=== PATIENT | male | born 1930 | race Caucasian/White ===

== ENCOUNTER → 2017-02-12 | Outpatient (CLI) | payer MEDICARE, OTHER ==
[~2017-02-12] MED LIST: FENO160T; GLIM2TAB; LOSA1TAB15; REGADENOSON 0.4 MG/5 ML SYR (LEXISCAN) IV ONE
[2017-02-12] MEDS: CATHETER FLUSH 10 ML SYR IV PRN ×2 (11:49→13:23)
[2017-02-12 13:21] VITALS: BP 160/73
== END ==
LOC: CARD 11:36
PROVIDERS: ATTEND Physician Assistant
DX: I25.10 Atherosclerotic heart disease of native coronary artery without angina pectoris (principal); I65.23 Occlusion and stenosis of bilateral carotid arteries; E78.2 Mixed hyperlipidemia; I73.9 Peripheral vascular disease, unspecified
CPT/HCPCS: 78452; 93017

== ENCOUNTER 2017-02-19 07:33 | Day surgery (SDC) | payer MEDICARE, OTHER ==
[~2017-02-19] VITALS: Ht 175.3 cm; Wt 75.9 kg
[2017-02-19] VITALS (12 sets, daily range): BP systolic 123–171; BP diastolic 46–96
[~2017-02-19 07:33] MED LIST changes: -REGADENOSON 0.4 MG/5 ML SYR (LEXISCAN) IV ONE
[2017-02-19] MEDS ORDERED: HEParin (CATH LAB) 2,000 ML IV ONE (07:35)
[2017-02-19] MEDS ORDERED: NS IV 1000 ML 1,000 ML ONE ×3 (07:35→11:20)
[2017-02-19] MEDS ORDERED: NS IV 1000 ML 1,000 ML IV SCH (07:46)
[2017-02-19 08:13] LABS: MEAN PLATELET VOLUME 10.1 FL (7.4-10.4); RED BLOOD COUNT 4.22 10^6/uL (4.35-5.85); RED CELL DISTRIBUTION WIDTH 14.4 % (10.0-14.5); WHITE BLOOD COUNT 6.8 10^3/uL (4.3-11.0)
[2017-02-19 08:14] LABS: BILIRUBIN,URINE NEGATIVE (NEGATIVE); KETONES,URINE NEGATIVE (NEGATIVE); LEUKOCYTE ESTERASE ,URINE NEGATIVE (NEGATIVE); NITRITE,URINE NEGATIVE (NEGATIVE); PH,URINE 6 (5-9); PROTEIN,URINE 1+ (NEGATIVE); UROBILINOGEN,URINE NORMAL (NORMAL)
--- NOTE | 2017-02-19 08:22 | Diagnostic Imaging Report ---
Portable erect AP chest at 809 hours. INDICATION: Preop heart catheter. FINDINGS: The borderline cardiomegaly noted on the prior exam of 09/12/09 is again evident and no different. The lungs remain clear. There is no sign of failure, pneumonia or pleural effusion. The mediastinum is not widened. The osseous structures are intact. IMPRESSION: There is borderline cardiomegaly, but there is no evidence for an acute abnormality. Dictated by: Dictated on workstation # [id number]
[2017-02-19 08:23] LABS: WBC,URINE RARE /HPF
[2017-02-19 08:24] LABS: HYALINE CASTS, URINE RARE /LPF; SQUAMOUS EPITHELIAL CELL,UR RARE /HPF
[2017-02-19] MEDS: NS IV 1000 ML 1,000 ML IV SCH ×4 (08:27→21:45)
[2017-02-19 08:30] LABS: INR 0.9 (0.8-1.4); PROTHROMBIN TIME PATIENT 12.4 SEC (12.2-14.7)
[2017-02-19 08:34] LABS: ALBUMIN 4.2 GM/DL (3.2-4.5); BILIRUBIN,TOTAL 0.5 MG/DL (0.1-1.0); CALCIUM 9.5 MG/DL (8.5-10.1); CREATININE SERUM 1.58 MG/DL (0.60-1.30); POTASSIUM 4.7 MMOL/L (3.6-5.0); TOTAL PROTEIN 7.4 GM/DL (6.4-8.2)
[2017-02-19] MEDS ORDERED: CLOP75TA28 PO (08:46)
[2017-02-19] MEDS ORDERED: SITA50TA PO (08:47)
[2017-02-19] MEDS ORDERED: SIMV20TA3 PO (08:47)
[2017-02-19] MEDS ORDERED: METO-387 PO (08:49)
[2017-02-19] MEDS ORDERED: LOSA1TAB23 PO (08:50)
[2017-02-19] MEDS ORDERED: RANI150T90 PO (08:51)
[2017-02-19] MEDS ORDERED: FENO145T20 PO (08:51)
[2017-02-19] MEDS ORDERED: fentaNYL INJECTION 100 MCG/2 ML AMP ONE ×2 (09:34→18:11)
[2017-02-19] MEDS ORDERED: MIDAZOLAM 5 MG/5 ML (VERSED) VIAL ONE (09:34)
[2017-02-19] MEDS ORDERED: HEParin 1000 UNIT/ML (10ML VIAL) FOR BOLUS ONE (10:12)
[2017-02-19] MEDS ORDERED: NITROGLYCERIN DRIP 25 MG/D5W 250 ML IV ONE (10:19)
[2017-02-19] MEDS ORDERED: CLOPIDOGREL 300 MG (PLAVIX) TABLET PO ONE (11:51)
[2017-02-19] MEDS ORDERED: ASPIRIN 325 MG (5 GR) TABLET ONE (11:51)
[2017-02-19] MEDS ORDERED: PATIENT MAY USE OWN MEDS, ALL PO SCH (12:00)
--- NOTE | 2017-02-19 12:00 | Cardiac Procedure Note-CS/ASA ---
Pre-Procedure Note Pre-Op Procedure Note H&P Reviewed The H&P was reviewed, patient examined and no changes noted. Date H&P Reviewed: Feb 19, 2017 Time H&P Reviewed: 09:30 Conscious Sedation Pre-Proced Time Reviewed: 09:30 ASA Class: 3 Airway Mallampati Classification: (prairie band appropriate class) I. II. III, IV Lungs Heart ASA score ASA 1: a normal healthy patient ASA 2: a patient with a mild systemic disease (mid diabetes, controlled hypertension, obesity x ASA 3: a patient with a severe systemic disease that limits activity (angina , COPD, prior Myocardial infarction) ASA 4: a patient with an incapacitating disease that is a constant threat to life (CHF, renal failure) ASA 5: a moribund patient not expected to survive 24 hrs. (ruptured aneurysm) ASA 6: a declared brain patient whose organs are being harvested. For emergent operations, add the letter E after the classification Grade 3 Sedation Plan: Analgesia, Amnesia, Plan communicated to team members, Discussed options with patient/fam, Discussed risks with patient/fam Note The patient is an appropriate candidate to undergo the planned procedure, sedation, and anesthesia. The patient immediately re-assessed prior to indication. JULIETTE MAHAN MD Feb 19, 2017 12:00
--- NOTE | 2017-02-19 13:55 | Cardiac Cath Report ---
Cardiac Cath Report Physician (s)/Patternmaker All Around (s) Physician JULIETTE MAHAN MD Pre-Procedure Diagnosis Pre-Procedure Diagnosis: Peripheral arterial disease Post-Procedure Note Procedure Start Date: Feb 19, 2017 Procedure Start Time: 10:30 Name of Procedure: peripheral angiogram, abdominal aortogram, bilateral lower extremity runoff. Rotion atherectomy, balloon then stent deployment to the right SFA Findings/Procedure Note Procedure report After explaining the procedure to the patient all pros and cons were explained patient was placed on the cardiac catheterization laboratory left groin was prepped SL fashion 6 Dominican sheath was placed in the left femoral artery. Pigtail catheter advanced the abdominal aorta abdominal aortogram was done. Long stork wire was advanced to the right common iliac artery, pigtail catheter was exchanged into a straight catheter, runoff of the right lower except he was done. Patient was given a total of 7000 units of heparin, I advanced a stork wire against through the straight catheter was unable to intubate the SFA that was totally occluded midportion. Exchanged a stork wire into command wire advanced to the SFA, I was unable to cross the lesion. Advanced mini catheter then I was able to cross it and advanced mini catheter to the popliteal artery, the wire was removed and manual injection in the popliteal artery was done which showed good catheter position with good flow. Then I placed a Viber wire then Nav6 protection device then I used diamondback with multiple atherectomy attempt to the SFA then I advanced [id number] 6.0200 mm inflated multiple time in the SFA. Reevaluation showed distal stenosis after the total occlusion with establishment of flow and dissection. I placed another balloon 6.0100 mm inflated twice with good results then I placed 2 overlapping Supera stent 5.5 150 and 6.0 x 100 postdilated with the 6.0 balloon with excellent results, runoff showed good flow down to the trifurcation, there is occlusion of the anterior and posterior tibial artery with brisk flow through the peroneal artery. The long sheath was pulled back and exchanged into short sheath and runoff of the left lower except he was made at the end of the procedure sheath was sutured in place. Anatomy Abdominal aortogram: Atherosclerotic disease in the abdominal aorta and bifurcation no dissection or aneurysm was noted mild arthroscopic disease. Left lower extremity column runoff was done through the sheath, there is moderate severe stenosis in the SFA, total occlusion at the trifurcation with small vessel beyond the trifurcation noted. Next Right lower extremity: Patient had total occlusion at the distal right SFA, complex intervention with atherectomy using diamondback then balloon angioplasty then deployment of 2 overlapping stents Supera 5.5 time 150 and 6.0 100 with excellent results, below the knee there is only 1 vessel runoff which is the peroneal artery, brisk flow filling the arch at the foot. I will continue monitoring and evaluate for further workup and intervention if needed Conclusion 1. Total occlusion of the right SFA, successful complex intervention with atherectomy then deployment of 2 overlapping stent Supera 5.5150 and 6.0100 with excellent results, occlusion of the anterior and posterior tibial artery, the only vessel runoff is the peroneal artery that is filling the arch. I'll continue monitoring the ulcer on the foot, if no improvement CONSIDER FURTHER INTERVENTION TO THE SMALL VESSEL BELOW THE KNEE. 2. moderate to severe disease of the right SFA, occlusion at the trifurcation, did not see any vessel below the trifurcation. 3. Atherosclerotic disease in the abdominal aorta and bifurcation, no dissection or aneurysm Recommendations I'll continue maximizing medical therapy, reevaluate CALE and monitor the ulcer on the right leg, if no improvement consider intervention on the below knee vessels Anesthesia Type: Conscious Sedation Estimated blood loss (mL): 25 ml Contrast Amount: 59 ml Total Radiation Dose: 294 mGy Post-Procedure Diagnosis Post-operative diagnosis: Peripheral arterial disease Nonhealing foot ulcer Coronary artery disease Hypertension Diabetes mellitus JULIETTE MAHAN MD Feb 19, 2017 13:55
[2017-02-19] MEDS ORDERED: ATROPINE INJECTION 1 MG/10 ML SYR (ABBOTT) ONE (18:12)
[2017-02-19] MEDS ORDERED: SIMvastatin 20 MG (ZOCOR) TAB PO SCH (21:00)
[2017-02-19] MEDS ORDERED: raNItidine (ZANTAC) 150 MG TAB NON-FORMULARY PO SCH (21:00)
[2017-02-19] MEDS ORDERED: TRICOR 145 MG PO SCH (21:00)
[2017-02-20] VITALS (11 sets, daily range): BP systolic 113–158; BP diastolic 44–68
[2017-02-20 04:47] LABS: MEAN PLATELET VOLUME 10.2 FL (7.4-10.4); RED BLOOD COUNT 3.61 10^6/uL (4.35-5.85); RED CELL DISTRIBUTION WIDTH 14.3 % (10.0-14.5); WHITE BLOOD COUNT 6.9 10^3/uL (4.3-11.0)
[2017-02-20 05:13] LABS: ANION GAP 9 MMOL/L (5-14); BLOOD UREA NITROGEN 21 MG/DL (7-18); BUN/CREATININE RATIO 19; CALCIUM 8.5 MG/DL (8.5-10.1); CARBON DIOXIDE 21 MMOL/L (21-32); CHLORIDE 111 MMOL/L (98-107); CREATININE SERUM 1.11 MG/DL (0.60-1.30); GFR ESTIMATED > 60; GLUCOSE 139 MG/DL (70-105); POTASSIUM 4.4 MMOL/L (3.6-5.0); SODIUM 141 MMOL/L (135-145)
--- NOTE | 2017-02-20 08:04 | Short Stay Summary ---
History of Present Illness History of Present Illness Reason for visit/HPI 86 years old gentleman with history of coronary artery disease extensive peripheral artery disease claudication, pain at rest, scheduled for percutaneous angiogram and intervention, underwent the procedure yesterday, this morning his been feeling well. Expressed that for the first time his ankle has felt better, did not have pain last night. Groin is healing well. Date of Admission February 19, 2017 Date of Discharge February 20, 2017 Time Seen by Provider: 07:50 Attending Physician Juliette Cruz MD Admitting Physician Cade Boyle MD Consult Allergies and Home Medications Allergies Coded Allergies: No Known Drug Allergies (Verified Allergy, Unknown, 09/13/09) Home Medications Clopidogrel Bisulfate 75 Mg Tablet, 75 MG PO DAILY, (Reported) Fenofibrate Nanocrystallized 145 Mg Tablet, 145 MG PO DAILY, (Reported) Losartan/Hydrochlorothiazide 1 Each Tablet, 1 EACH PO DAILY, (Reported) Metoprolol Succinate 25 Mg Tab.er.24h, 25 MG PO DAILY, (Reported) Ranitidine HCl 150 Mg Tablet, 150 MG PO BID, (Reported) Simvastatin 20 Mg Tablet, 20 MG PO HS, (Reported) Sitagliptin Phosphate 50 Mg Tablet, 50 MG PO DAILY, (Reported) Past [id number] Hx Patient Social History Marrital Status: Employed/Student: retired Smoking Status: Former Smoker Former Smoker, Quit: Feb 20, 1984 Recent Foreign Travel: No Contact w/other who traveled: No Recent Infectious Disease Expo: No Immunizations Up To Date Date of Pneumonia Vaccine: Feb 19, 2006 Reproductive System Hx Reproductive Disorders: No Gastrointestinal Gastroesophageal Reflux Constitutional: no symptoms reported, see HPI EENTM: see HPI, no symptoms reported Respiratory: no symptoms reported, see HPI Cardiovascular: no symptoms reported, see HPI Gastrointestinal: no symptoms reported, see HPI Genitourinary: see HPI Musculoskeletal: no symptoms reported, see HPI Skin: see HPI Psychiatric/Neurological: No Symptoms Reported, See HPI Physical Exam Vital Signs Vital Sign - Last 12Hours 02/19/17 08:03 Temp 97.4 Pulse 53 Resp 18 B/P (MAP) 171/73 Pulse Ox 97 Capillary Refill : Less Than 3 Seconds General Appearance: No Apparent Distress, WD/WN Eyes: Bilateral Eye Normal Inspection, Bilateral Eye PERRL, Bilateral Eye EOMI HEENT: PERRL/EOMI, TMs Normal, Normal ENT Inspection, Pharynx Normal Neck: Full Range of Motion, Normal Inspection, Non Tender, Supple, Carotid Bruit Respiratory: Chest Non Tender, Lungs Clear, Normal Breath Sounds, No Accessory Muscle Use, No Respiratory Distress Cardiovascular: Regular Rate, Rhythm, No Edema, No Gallop, No JVD, Systolic Murmur, Other (diminished peripheral pulse, legs are warm.) Gastrointestinal: Normal Bowel Sounds, No Organomegaly, No Pulsatile Mass, Non Tender, Soft Back: Normal Inspection, No CVA Tenderness, No Vertebral Tenderness Extremity: Normal Inspection, Normal Range of Motion, Non Tender, No Calf Tenderness, No Pedal Edema, Slow Capillary Refill Neurologic/Psychiatric: Alert, Oriented x3, No Motor/Sensory Deficits, Normal Mood/Affect Skin: Normal Color, Warm/Dry Lymphatic: No Adenopathy Short Stay Diagnosis Discharge Diagnosis-Short Stay Admission Diagnosis: peripheral arterial disease Claudication Coronary artery disease Hypertension Hyperlipidemia Final Discharge Diagnosis: peripheral arterial disease Claudication Coronary artery disease Hypertension Hyperlipidemia Conclusion Labs Laboratory Tests 02/19/17 08:05: White Blood Count 6.8, Red Blood Count 4.22L, Hemoglobin 13.0L, Hematocrit 41, Mean Corpuscular Volume 96, Mean Corpuscular Hemoglobin 31, Mean Corpuscular Hemoglobin Concent 32, Red Cell Distribution Width 14.4, Platelet Count 159, Mean Platelet Volume 10.1, Prothrombin Time 12.4, INR Comment 0.9, Activated Partial Thromboplast Time 25, Sodium Level 139, Potassium Level 4.7, Chloride Level 106, Carbon Dioxide Level 27, Anion Gap 6, Blood Urea Nitrogen 30H, Creatinine 1.58H, Estimat Glomerular Filtration Rate 42, BUN/Creatinine Ratio 19 , Glucose Level 194H, Calcium Level 9.5, Total Bilirubin 0.5, Aspartate Amino Transf (AST/SGOT) 17, Alanine Aminotransferase (ALT/SGPT) 21, Alkaline Phosphatase 53, Total Protein 7.4, Albumin 4.2, Triglycerides Level 135, Cholesterol Level 160, LDL Cholesterol Direct 89, VLDL Cholesterol 27, HDL Cholesterol 55 02/19/17 14:50: Activated Partial Thromboplast Time 72H 02/19/17 16:20: Activated Partial Thromboplast Time 40H 02/20/17 04:12: White Blood Count 6.9, Red Blood Count 3.61L, Hemoglobin 11.2L, Hematocrit 35L, Mean Corpuscular Volume 97, Mean Corpuscular Hemoglobin 31, Mean Corpuscular Hemoglobin Concent 32, Red Cell Distribution Width 14.3, Platelet Count 123L, Mean Platelet Volume 10.2, Sodium Level 141, Potassium Level 4.4, Chloride Level 111H, Carbon Dioxide Level 21, Anion Gap 9, Blood Urea Nitrogen 21H, Creatinine 1.11, Estimat Glomerular Filtration Rate > 60, BUN/Creatinine Ratio 19, Glucose Level 139H, Calcium Level 8.5 Conclusion/Plan peripheral arterial disease, severe stenosis at both lower extremity, on the right leg underwent atherectomy and 2 stents to the right SFA Supera 5.5 x 150 and 6.0100 with good results, brisk flow, single-vessel below the knee with popliteal artery filling the arch, the anterior and posterior tibial are occluded, I will monitor and reevaluate CALE. on the left leg patient has multiple segment of moderate to severe stenosis at the left SFA, did not see any visible below the knee. I will monitor. Planning to evaluate CALE. Hypertension, continue to monitor blood pressure Hyperlipidemia, monitor lipids Follow-up in my office next week JULIETTE CRUZ MD Feb 20, 2017 08:04
[2017-02-20] MEDS ORDERED: ASPI-983 PO (08:05)
--- NOTE | 2017-02-20 08:08 | Discharge Inst-Post CATH ---
Discharge Inst-CATH Post Cardiac Cath D/C Inst Follow Up/Plan Appointment with Dr. Cruz's office next Friday CARDIAC CATH DISCHARGE INSTRUCTIONS *Hold Metformin for 48 hours post heart cath. ACTIVITY * Go Home directly and rest. * Limit activity of the leg (or wrist if it was used) for 7 days including aerobics, swimming, jogging, bicycling, etc. * Restrict stair-climbing for 7 days if possible, if not, climb up with your non -cath leg, then bring together on the same step. * Avoid lifting, pushing, pulling or excessive movement of the affected extremity for 7 days. * Customary sexual activity may be resumed after 2 days-use caution not to use a position that strains or causes pain to the affected extremity. * No driving for 24 hours. * NO SMOKING. * Avoid straining for bowel movements for 7 days. * Gentle walking on level ground is allowed. * Returning to work will depend on the type of procedure and the results. Your doctor will discuss this with you. CALL YOUR DOCTOR FOR ANY OF THE FOLLOWING: *If bleeding from the puncture site occurs- Apply gentle pressure to site with clean cloth and call your doctor or EMS. * If a knot or lump forms under the skin, increases in size, or causes pain. * If bruising appears to be worsening or moving further down your leg instead of disappearing. * Temperature above 101 F. CARE OF YOUR GROIN INCISION; * Bruising or purple discoloration of the skin near the puncture site is common. * You may shower only, no bathtub bathing for 5 days. Be careful to avoid slipping as your leg may feel stiff. * If a closure device was used on your femoral artery, please see the attached guide regarding care of the device and your leg. * REMOVE the dressing from your groin the next day after your procedure in the shower. CARE OF YOUR WRIST INCISION; * Bruising or purple discoloration of the skin near the puncture site is common. * You may shower. * DO NOT submerge wrist. * Remove dressing in 24 hours. JULIETTE CRUZ MD Feb 20, 2017 08:08
[2017-02-20] MEDS ORDERED: CLOPIDOGREL 75 MG (PLAVIX) TABLET PO SCH (09:00)
[2017-02-20] MEDS ORDERED: sitaGLIPtin 50 MG (NON-FORMULARY) TAB PO SCH (09:00)
[2017-02-20] MEDS ORDERED: ASPIRIN E.C. 81 MG (ECOTRIN) TAB PO SCH (09:00)
[2017-02-20] MEDS ORDERED: LOSARTAN HCTZ PO SCH (09:00)
[2017-02-20] MEDS ORDERED: fentaNYL INJECTION 100 MCG/2 ML AMP IVP PRN (10:45)
== END 2017-02-20 09:08 | disposition home or self-care (01) ==
LOC: CATH 07:33 → ICU 14:19 → CATH 02-20 09:08
PROVIDERS: ATTEND Internal Medicine Cardiovascular Disease
DX: I70.203 Unspecified atherosclerosis of native arteries of extremities, bilateral legs (principal); L97.519 Non-pressure chronic ulcer of other part of right foot with unspecified severity; E11.621 Type 2 diabetes mellitus with foot ulcer; I10 Essential (primary) hypertension; E78.5 Hyperlipidemia, unspecified; I25.10 Atherosclerotic heart disease of native coronary artery without angina pectoris; Z95.5 Presence of coronary angioplasty implant and graft; Z79.84 Long term (current) use of oral hypoglycemic drugs; Z79.899 Other long term (current) drug therapy; Z87.891 Personal history of nicotine dependence
CPT/HCPCS: 36247; 36415; 37227; 71010; 75625; 75716; 75774; 80048; 80053; 80061; 81000; 85027; 85347; 85610; 85730; 87081; 93005

== ENCOUNTER 2018-03-07 18:23 | Inpatient (IN) | payer MEDICARE, OTHER ==
[~2018-03-07] VITALS: Ht 175.3 cm; Wt 69.6 kg
[~2018-03-07 18:23] MED LIST changes: +ASPI-983 PO; +CLOP75TA28 PO; +FENO145T37 PO; +LOSA1TAB23 PO; +METO-387 PO; +RANI150T90 PO; +SIMV20TA3 PO; +SITA50TA PO
--- OUTSIDE RECORDS SUMMARY | 2018-03-07 18:40 | XMS REPORT | Continuity of Care Document ---
Author Author [facility] Organization [facility] Address Unknown Phone Unavailable Allergies Active Description Code Type Severity Reaction Onset Reported/Identified Relationship to Patient Clinical Status Yes No Known Drug Allergies [id number] Drug Allergy Unknown N/A 09/13/2009 Medications There is no data. Problems Date Dx Coded Attending Type Code Diagnosis Diagnosed By 08/14/2014 Ot 414.01 08/14/2014 Ot 250.00 08/14/2014 Ot 272.4 08/14/2014 Ot 401.9 08/14/2014 Ot 414.01 08/14/2014 Ot 429.3 08/14/2014 Ot 794.39 08/14/2014 Ot V45.81 08/14/2014 Ot V72.63 08/14/2014 Ot V72.81 08/14/2014 Ot V74.8 08/14/2014 Ot 397.0 08/14/2014 Ot 401.9 08/14/2014 Ot 414.00 08/14/2014 Ot 424.0 08/14/2014 JOSE G MIGUEL Ot 250.00 08/14/2014 JOSE G MIGUEL Ot 272.4 08/14/2014 JOSE G MIGUEL Ot 397.0 08/14/2014 JOSE G MIGUEL Ot 401.9 08/14/2014 JOSE G MIGUEL Ot 414.00 08/14/2014 JOSE G MIGUEL Ot 416.8 08/14/2014 JOSE G MIGUEL Ot 424.0 08/14/2014 JOSE G MIGUEL Ot 433.10 09/28/2014 NEGRITO FLANAGAN, JULIETTE Stein Ot 272.4 09/28/2014 NEGRITO FLANAGAN, JULIETTE Stein Ot 401.9 09/28/2014 NEGRITO FLANAGAN, JULIETTE Stein Ot 414.00 09/28/2014 JULIETTE MAHAN MD Ot 433.10 10/31/2014 NEGRITO FLANAGAN, JULIETTE Stein Ot 272.4 10/31/2014 NEGRITO FLANAGAN, JULIETTE Stein Ot 401.9 10/31/2014 NEGRITO FLANAGAN, JULIETTE Stein Ot 414.00 10/31/2014 NEGRITO FLANAGAN, JULIETTE Stein Ot 433.10 11/18/2014 NEGRITO FLANAGAN, JULIETTE Steni Ot 272.4 11/18/2014 NEGRITO FLANAGAN, JULIETTE Stein Ot 401.9 11/18/2014 NEGRITO FLANAGAN, JULIETTE Stein Ot 414.00 11/18/2014 NEGRITO FLANAGAN, JULIETTE Stein Ot 433.10 11/29/2014 NEGRITO FLANAGAN, JULIETTE Stein Ot 272.4 11/29/2014 NEGRITO FLANAGAN, JULIETTE Stein Ot 401.9 11/29/2014 NEGRITO FLANAGAN, JULIETTE Stein Ot 414.00 11/29/2014 NEGRITO FLANAGAN, JULIETTE Stein Ot 433.10 12/09/2014 GIOVANNI DPM, SEFERNIO Q Ot 785.9 12/14/2014 GIOVANNI DPM, SEFERINO Q Ot 785.9 02/27/2015 Ot 250.00 02/27/2015 Ot 272.4 02/27/2015 Ot 401.9 02/27/2015 Ot 414.01 02/27/2015 Ot 429.3 02/27/2015 Ot 794.39 02/27/2015 Ot V45.81 02/27/2015 Ot V72.63 02/27/2015 Ot V72.81 02/27/2015 Ot V74.8 02/27/2015 Ot 397.0 02/27/2015 Ot 401.9 02/27/2015 Ot 414.00 02/27/2015 Ot 424.0 02/27/2015 DAYAN PA, JOSE G Mederos Ot 250.00 02/27/2015 DAYAN PA, JOSE G Mederos Ot 272.4 02/27/2015 DAYAN PA, JOSE G Mederos Ot 397.0 02/27/2015 DAYAN PA, JOSE G Mederos Ot 401.9 02/27/2015 DAYAN PA, JOSE G Mederos Ot 414.00 02/27/2015 DAYAN PA, JOSE G Mederos Ot 416.8 02/27/2015 DAYAN PA, JOSE G Mederos Ot 424.0 02/27/2015 DAYAN PA, JOSE G K Ot 433.10 02/27/2015 NEGRITO FLANAGAN, JULIETTE J Ot 272.4 02/27/2015 NEGRITO FLANAGAN, JULIETTE J Ot 401.9 02/27/2015 NEGRITO FLANAGAN, JULIETTE J Ot 414.00 02/27/2015 NEGRITO FLANAGAN, JULIETTE J Ot 433.10 02/27/2015 NEGRITO FLANAGAN, JULIETTE Stein Ot 272.4 02/27/2015 NEGRITO FLANAGAN, JULIETTE J Ot 401.9 02/27/2015 NEGRITO FLANAGAN, JULIETTE Stein Ot 414.00 02/27/2015 NEGRITO FLANAGAN, JULIETTE Stein Ot 433.10 02/27/2015 GIOVANNI DPM, SEFERINO Q Ot 785.9 06/01/2015 Ot 397.0 06/01/2015 Ot 401.9 06/01/2015 Ot 414.00 06/01/2015 Ot 424.0 06/01/2015 DAYAN PA, JOSE G K Ot 250.00 06/01/2015 DAYAN PA, JOSE G K Ot 272.4 06/01/2015 DAYAN PA, JOSE G K Ot 397.0 06/01/2015 MAMADOU-LENNY PA, JOSE G K Ot 401.9 06/01/2015 MAMADOU-LENNY PA, JOSE G K Ot 414.00 06/01/2015 DAYAN PA, JOSE G K Ot 416.8 06/01/2015 MAMADOU-LENNY PA, JOSE G K Ot 424.0 06/01/2015 DAYAN PA, JOSE G K Ot 433.10 06/01/2015 NEGRITO FLANAGAN, JULIETTE Stein Ot 272.4 06/01/2015 NEGRITO FLANAGAN, JULIETTE J Ot 401.9 06/01/2015 NEGRITO FLANAGAN, JULIETTE J Ot 414.00 06/01/2015 NEGRITO FLANAGAN, JULIETTE J Ot 433.10 06/01/2015 NEGRITO FLANAGAN, JULIETTE J Ot 272.4 06/01/2015 NEGRITO FLANAGAN, JULIETTE J Ot 401.9 06/01/2015 NEGRITO FLANAGAN, JULIETTE J Ot 414.00 06/01/2015 NEGRITO FLANAGAN, JULIETTE J Ot 433.10 06/01/2015 GIOVANNI DPM, SEFERINO Q Ot 785.9 06/05/2015 YESY FLANAGAN, NICOLE Berumen Ot I10 06/05/2015 YESY FLANAGAN, NICOLE Berumen Ot N19 06/11/2015 Ot 397.0 06/11/2015 Ot 401.9 06/11/2015 Ot 414.00 06/11/2015 Ot 424.0 06/11/2015 CEDILLO-LENNY PA, JOSE G K Ot 250.00 06/11/2015 CEDILLO-LENNY PA, JOSE G K Ot 272.4 06/11/2015 CEDILLO-LENNY PA, JOSE G K Ot 397.0 06/11/2015 CEDILLO-LENNY PA, JOSE G K Ot 401.9 06/11/2015 CEDILLO-LENNY PA, JOSE G K Ot 414.00 06/11/2015 CEDILLO-LENNY PA, JOSE G K Ot 416.8 06/11/2015 CEDILLO-LENNY PA, JOSE G K Ot 424.0 06/11/2015 CEDILLO-LENNY PA, JOSE G K Ot 433.10 06/11/2015 NEGRITO FLANAGAN, JULIETTE Stein Ot 272.4 06/11/2015 NEGRITO FLANAGAN, JULIETTE J Ot 401.9 06/11/2015 NEGRITO FLANAGAN, BASHAR J Ot 414.00 06/11/2015 NEGRITO FLANAGAN, BASHAR J Ot 433.10 06/11/2015 NEGRITO FLANAGAN, JULIETTE J Ot 272.4 06/11/2015 NEGRITO FLANAGAN, JULIETTE J Ot 401.9 06/11/2015 NEGRITO FLANAGAN, BASHAR J Ot 414.00 06/11/2015 NEGRITO FLANAGAN, BASHAR J Ot 433.10 06/11/2015 GIOVANNI DPM, SEFERINO Q Ot 785.9 06/11/2015 NICOLE HAYWARD MD Ot I10 06/11/2015 NICOLE HAYWARD MD Ot N19 06/21/2015 Ot 397.0 06/21/2015 Ot 401.9 06/21/2015 Ot 414.00 06/21/2015 Ot 424.0 06/21/2015 MAMADOU-LENNY PA, JOSE G K Ot 250.00 06/21/2015 CEDILLO-LENNY PA, JOSE G K Ot 272.4 06/21/2015 CEDILLO-LENNY PA, JOSE G K Ot 397.0 06/21/2015 CEDILLO-LENNY PA, JOSE G K Ot 401.9 06/21/2015 CEDILLO-LENNY PA, JOSE G K Ot 414.00 06/21/2015 JOSE G MIGUEL Ot 416.8 06/21/2015 JOSE G MIGUEL Ot 424.0 06/21/2015 JOSE G MIGUEL Ot 433.10 06/21/2015 NEGRITO FLANAGAN, JULIETTE Stein Ot 272.4 06/21/2015 NEGRITO FLANAGAN, JULIETTE Stein Ot 401.9 06/21/2015 NEGRITO FLANAGAN, JULIETTE Stein Ot 414.00 06/21/2015 NEGRITO FLANAGAN, JULIETTE Stein Ot 433.10 06/21/2015 NEGRITO FLANAGAN, JULIETTE Stein Ot 272.4 06/21/2015 NEGRITO FLANAGAN, JULIETTE Stein Ot 401.9 06/21/2015 NEGRITO FLANAGAN, JULIETTE Stein Ot 414.00 06/21/2015 NEGRITO FLANAGAN, JULIETTE Stein Ot 433.10 06/21/2015 GIOVANNI DPM, SEFERINO Q Ot 785.9 06/21/2015 YESY LFANAGAN, NICOLE Berumen Ot I10 06/21/2015 YESY FLANAGAN, NICOLE Berumen Ot N19 07/12/2015 YESY FLANAGAN, NICOLE Berumen Ot I10 07/12/2015 YESY FLANAGAN, NICOLE Berumen Ot N19 04/02/2016 Ot 397.0 TRICUSPID VALVE DISEASE 04/02/2016 Ot 401.9 HYPERTENSION NOS 04/02/2016 Ot 414.00 CORON ATHEROSCLER NOS TYPE VESSEL, NATIV 04/02/2016 Ot 424.0 MITRAL VALVE DISORDER 04/02/2016 JOSE G MIGUEL Ot 250.00 DIAB HAMZAH WO COMPL, TYPE II OR UNSPEC TY 04/02/2016 JOSE G MIGUEL Ot 272.4 HYPERLIPIDEMIA NEC/NOS 04/02/2016 JOSE G MIGUEL Ot 397.0 TRICUSPID VALVE DISEASE 04/02/2016 JOSE G MIUGEL Ot 401.9 HYPERTENSION NOS 04/02/2016 JOSE G MIGUEL Ot 414.00 CORON ATHEROSCLER NOS TYPE VESSEL, NATIV 04/02/2016 JOSE G MIGUEL Ot 416.8 CHR PULMON HEART DIS NEC 04/02/2016 JOSE G MIGUEL Ot 424.0 MITRAL VALVE DISORDER 04/02/2016 JOSE G MIGUEL Ot 433.10 CAROTID ARTERY OCCLUSION W O CEREBRAL IN 04/02/2016 JULIETTE MAHAN MD Ot 272.4 HYPERLIPIDEMIA NEC/NOS 04/02/2016 JULIETTE MAHAN MD Ot 401.9 HYPERTENSION NOS 04/02/2016 JULIETTE MAHAN MD Ot 414.00 CORON ATHEROSCLER NOS TYPE VESSEL, NATIV 04/02/2016 JULIETTE MAHAN MD Ot 433.10 CAROTID ARTERY OCCLUSION W O CEREBRAL IN 04/02/2016 JULIETTE MAHAN MD Ot 272.4 HYPERLIPIDEMIA NEC/NOS 04/02/2016 JULIETTE MAHAN MD Ot 401.9 HYPERTENSION NOS 04/02/2016 JULIETTE MAHAN MD Ot 414.00 CORON ATHEROSCLER NOS TYPE VESSEL, NATIV 04/02/2016 JULIETTE MAHAN MD Ot 433.10 CAROTID ARTERY OCCLUSION W O CEREBRAL IN 04/02/2016 GIOVANNI DPM, SEFERINO Q Ot 785.9 CARDIOVAS SYS SYMP NEC 04/02/2016 NICOLE HAYWARD MD Ot I10 ESSENTIAL (PRIMARY) HYPERTENSION 04/02/2016 NICOLE HAYWARD MD Ot N19 UNSPECIFIED KIDNEY FAILURE 06/26/2016 Ot 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 TRICUSPID VALVE DISEASE 06/26/2016 Ot 401.9 HYPERTENSION NOS 06/26/2016 Ot 414.00 CORON ATHEROSCLER NOS TYPE VESSEL, NATIV 06/26/2016 Ot 424.0 MITRAL VALVE DISORDER 06/26/2016 JOSE G MIGUEL Ot 250.00 DIAB HAMZAH WO COMPL, TYPE II OR UNSPEC TY 06/26/2016 JOSE G MIGUEL Ot 272.4 HYPERLIPIDEMIA NEC/NOS 06/26/2016 JOSE G MIGUEL Ot 397.0 TRICUSPID VALVE DISEASE 06/26/2016 JOSE G MIGUEL Ot 401.9 HYPERTENSION NOS 06/26/2016 JOSE G MIGUEL Ot 414.00 CORON ATHEROSCLER NOS TYPE VESSEL, NATIV 06/26/2016 JOSE G MIGUEL Ot 416.8 CHR PULMON HEART DIS NEC 06/26/2016 JOSE G MIGUEL Ot 424.0 MITRAL VALVE DISORDER 06/26/2016 JOSE G MIGUEL Ot 433.10 CAROTID ARTERY OCCLUSION W O CEREBRAL IN 06/26/2016 JULIETTE MAHAN MD Ot 272.4 HYPERLIPIDEMIA NEC/NOS 06/26/2016 JULIETTE MAHAN MD Ot 401.9 HYPERTENSION NOS 06/26/2016 JULIETTE MAHAN MD Ot 414.00 CORON ATHEROSCLER NOS TYPE VESSEL, NATIV 06/26/2016 JULIETTE MAHAN MD Ot 433.10 CAROTID ARTERY OCCLUSION W O CEREBRAL IN 06/26/2016 JULIETTE MAHAN MD Ot 272.4 HYPERLIPIDEMIA NEC/NOS 06/26/2016 JULIETTE MAHAN MD Ot 401.9 HYPERTENSION NOS 06/26/2016 JULIETTE MAHAN MD Ot 414.00 CORON ATHEROSCLER NOS TYPE VESSEL, NATIV 06/26/2016 JULIETTE MAHAN MD Ot 433.10 CAROTID ARTERY OCCLUSION W O CEREBRAL IN 06/26/2016 GIOVANNI DPM, SEFERINO Q Ot 785.9 CARDIOVAS SYS SYMP NEC 06/26/2016 YESY FLANAGAN, NICOLE Berumen Ot I10 ESSENTIAL (PRIMARY) HYPERTENSION 06/26/2016 YESY FLANAGAN, NICOLE Berumen Ot N19 UNSPECIFIED KIDNEY FAILURE 02/11/2017 JOSE G MIGUEL Ot 250.00 DIAB HAMZAH WO COMPL, TYPE II OR UNSPEC TY 02/11/2017 JOSE G MIGUEL Ot 272.4 HYPERLIPIDEMIA NEC/NOS 02/11/2017 JOSE G MIGUEL Ot 397.0 TRICUSPID VALVE DISEASE 02/11/2017 JOSE G MIGUEL Ot 401.9 HYPERTENSION NOS 02/11/2017 JOSE G MIGUEL Ot 414.00 CORON ATHEROSCLER NOS TYPE VESSEL, NATIV 02/11/2017 JOSE G MIGUEL Ot 416.8 CHR PULMON HEART DIS NEC 02/11/2017 JOSE G MIGUEL Ot 424.0 MITRAL VALVE DISORDER 02/11/2017 JOSE G MIGUEL Ot 433.10 CAROTID ARTERY OCCLUSION W O CEREBRAL IN 02/11/2017 JULIETTE MAHAN MD Ot 272.4 HYPERLIPIDEMIA NEC/NOS 02/11/2017 JULIETTE MAHAN MD Ot 401.9 HYPERTENSION NOS 02/11/2017 JULIETTE MAHAN MD Ot 414.00 CORON ATHEROSCLER NOS TYPE VESSEL, NATIV 02/11/2017 JULIETTE MAHAN MD Ot 433.10 CAROTID ARTERY OCCLUSION W O CEREBRAL IN 02/11/2017 JULIETTE MAHAN MD Ot 272.4 HYPERLIPIDEMIA NEC/NOS 02/11/2017 JULIETTE MAHAN MD Ot 401.9 HYPERTENSION NOS 02/11/2017 JULIETTE MAHAN MD Ot 414.00 CORON ATHEROSCLER NOS TYPE VESSEL, NATIV 02/11/2017 JULIETTE MAHAN MD Ot 433.10 CAROTID ARTERY OCCLUSION W O CEREBRAL IN 02/11/2017 GIOVANNI DPM, SEFERINO Q Ot 785.9 CARDIOVAS SYS SYMP NEC 02/11/2017 NICOLE HAYWARD MD Ot I10 ESSENTIAL (PRIMARY) HYPERTENSION 02/11/2017 NICOLE HAYWARD MD Ot N19 UNSPECIFIED KIDNEY FAILURE 02/20/2017 JULIETTE MAHAN MD Ot E11.621 TYPE 2 DIABETES MELLITUS WITH FOOT ULCER 02/20/2017 JULIETTE MAHAN MD, Ot E78.5 HYPERLIPIDEMIA, UNSPECIFIED 02/20/2017 JULIETTE MAHAN MD Ot I10 ESSENTIAL (PRIMARY) HYPERTENSION 02/20/2017 JULIETTE MAHAN MD, Ot I25.10 ATHSCL HEART DISEASE OF [place] CORONARY 02/20/2017 JULIETTE MAHAN MD Ot 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[facility]CL [place] [facility] 02/20/2017 JULIETTE MAHAN MD, Ot L97.519 NON-PRS CHRONIC ULCER OTH PRT RIGHT FOOT 02/20/2017 JULIETTE MAHAN MD Ot Z79.84 EHS TEACHER (CURRENT) USE OF ORAL HYPOGLYC 02/20/2017 JULIETTE MAHAN MD, Ot Z79.899 OTHER EHS TEACHER (CURRENT) DRUG THERAPY 02/20/2017 JULIETTE MAHAN MD, Ot Z87.891 PERSONAL HISTORY OF NICOTINE DEPENDENCE 02/20/2017 JULIETTE MAHAN MD Ot Z95.5 PRESENCE OF CORONARY ANGIOPLASTY IMPLANT 03/05/2017 JOSE G MIGUEL Ot E78.2 MIXED HYPERLIPIDEMIA 03/05/2017 JOSE G MIGUEL Ot I25.10 ATHSCL HEART DISEASE OF [place] CORONARY 03/05/2017 JOSE G MIGUEL Ot 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 03/05/2017 JOSE G MIGUEL Ot I73.9 PERIPHERAL VASCULAR DISEASE, UNSPECIFIED 03/25/2017 JOSE G MIGUEL Ot E78.2 MIXED HYPERLIPIDEMIA 03/25/2017 DAYAN TORIBIO JOSE G Rosa M Ot I25.10 ATHSCL HEART DISEASE OF [place] CORONARY 03/25/2017 DAYAN TORIBIO JOSE G Rosa M Ot 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 03/25/2017 DAYAN TORIBIO JOSE G Rosa M Ot I73.9 PERIPHERAL VASCULAR DISEASE, UNSPECIFIED 10/26/2017 DAYAN TORIBIO JOSE G Rosa M Ot 250.00 DIAB HAMZAH WO COMPL, TYPE II OR UNSPEC TY 10/26/2017 DAYAN TORIBIO JOSE G K Ot 272.4 HYPERLIPIDEMIA NEC/NOS 10/26/2017 DAYAN TORIBIO JOSE G Rosa M Ot 397.0 TRICUSPID VALVE DISEASE 10/26/2017 DAYAN TORIBIO JOSE G K Ot 401.9 HYPERTENSION NOS 10/26/2017 DAYAN TORIBIO JOSE G K Ot 414.00 CORON ATHEROSCLER NOS TYPE VESSEL, NATIV 10/26/2017 DAYAN TORIBIO JOSE G Rosa M Ot 416.8 CHR PULMON HEART DIS NEC 10/26/2017 DAYAN TORIBIO JOSE G Rosa M Ot 424.0 MITRAL VALVE DISORDER 10/26/2017 DAYAN TORIBIO JOSE G Rosa M Ot 433.10 CAROTID ARTERY OCCLUSION W O CEREBRAL IN 10/26/2017 JULIETTE MAHAN MD Ot 272.4 HYPERLIPIDEMIA NEC/NOS 10/26/2017 JULIETTE MAHAN MD Ot 401.9 HYPERTENSION NOS 10/26/2017 JULIETTE MAHAN MD Ot 414.00 CORON ATHEROSCLER NOS TYPE VESSEL, NATIV 10/26/2017 JULIETTE MAHAN MD Ot 433.10 CAROTID ARTERY OCCLUSION W O CEREBRAL IN 10/26/2017 JULIETTE MAHAN MD Ot 272.4 HYPERLIPIDEMIA NEC/NOS 10/26/2017 JULIETTE MAHAN MD Ot 401.9 HYPERTENSION NOS 10/26/2017 JULIETTE MAHAN MD Ot 414.00 CORON ATHEROSCLER NOS TYPE VESSEL, NATIV 10/26/2017 JULIETTE MAHAN MD Ot 433.10 CAROTID ARTERY OCCLUSION W O CEREBRAL IN 10/26/2017 GIOVANNI DPM, SEFERINO Q Ot 785.9 CARDIOVAS SYS SYMP NEC 10/26/2017 YESY FLANAGAN, NICOLE Berumen Ot I10 ESSENTIAL (PRIMARY) HYPERTENSION 10/26/2017 NICOLE HAYWARD MD Ot N19 UNSPECIFIED KIDNEY FAILURE 10/26/2017 JOSE G MIGUEL Ot E78.2 MIXED HYPERLIPIDEMIA 10/26/2017 JOSE G MIGUEL Ot I25.10 ATHSCL HEART DISEASE OF [place] CORONARY 10/26/2017 JOSE G MIGUEL Ot 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 Results Test Result Range Complete urinalysis with reflex to culture - 02/19/17 07:54 Urine color determination YELLOW NRG Urine clarity determination SLIGHTLY CLOUDY NRG Urine pH measurement by test strip 6 5-9 Specific gravity of urine by test strip 1.015 1.016- 1.022 Urine protein assay by test strip, semi-quantitative 1+ NEGATIVE Urine glucose detection by automated test strip 2+ NEGATIVE Erythrocytes detection in urine sediment by light microscopy NEGATIVE NEGATIVE Urine ketones detection by automated test strip NEGATIVE NEGATIVE Urine nitrite detection by test strip NEGATIVE NEGATIVE Urine total bilirubin detection by test strip NEGATIVE NEGATIVE Urine urobilinogen measurement by automated test strip (mass/volume) NORMAL NORMAL Urine leukocyte esterase detection by dipstick NEGATIVE NEGATIVE Automated urine sediment erythrocyte count by microscopy (number/high power field) NONE NRG Automated urine sediment leukocyte count by microscopy (number/high power field ) RARE NRG Bacteria detection in urine sediment by light microscopy NEGATIVE NRG Squamous epithelial cells detection in urine sediment by light microscopy RARE NRG Crystals detection in urine sediment by light microscopy NONE NRG Casts detection in urine sediment by light microscopy PRESENT NRG Mucus detection in urine sediment by light microscopy NEGATIVE NRG Complete urinalysis with reflex to culture NO NRG Hyaline casts detection in urine sediment by light microscopy RARE NRG Automated blood complete blood count (hemogram) panel - 02/19/17 08:05 Blood leukocytes automated count (number/volume) 6.8 10*3/uL 4.3-11.0 Blood erythrocytes automated count (number/volume) 4.22 10*6/uL 4.35-5.85 Venous blood hemoglobin measurement (mass/volume) 13.0 g/dL 13.3-17.7 Blood hematocrit (volume fraction) 41 % 40-54 Automated erythrocyte mean corpuscular volume 96 [foz_us] 80-99 Automated erythrocyte mean corpuscular hemoglobin (mass per erythrocyte) 31 pg 25-34 Automated erythrocyte mean corpuscular hemoglobin concentration measurement ( mass/volume) 32 g/dL 32-36 Automated erythrocyte distribution width ratio 14.4 % 10.0-14.5 Automated blood platelet count (count/volume) 159 10*3/uL 130-400 Automated blood platelet mean volume measurement 10.1 [foz_us] 7.4-10.4 Comprehensive metabolic panel - 02/19/17 08:05 Serum or plasma sodium measurement (moles/volume) 139 mmol/L 135-145 Serum or plasma potassium measurement (moles/volume) 4.7 mmol/L 3.6-5.0 Serum or plasma chloride measurement (moles/volume) 106 mmol/L 98-107 Carbon dioxide 27 mmol/L 21-32 Serum or plasma anion gap determination (moles/volume) 6 mmol/L 5-14 Serum or plasma urea nitrogen measurement (mass/volume) 30 mg/dL 7-18 Serum or plasma creatinine measurement (mass/volume) 1.58 mg/dL 0.60-1.30 Serum or plasma urea nitrogen/creatinine mass ratio 19 NRG Serum or plasma creatinine measurement with calculation of estimated glomerular filtration rate 42 NRG Serum or plasma glucose measurement (mass/volume) 194 mg/dL 70-105 Serum or plasma calcium measurement (mass/volume) 9.5 mg/dL 8.5-10.1 Serum or plasma total bilirubin measurement (mass/volume) 0.5 mg/dL 0.1-1.0 Serum or plasma alkaline phosphatase measurement (enzymatic activity/volume) 53 U/L 40-136 Serum or plasma aspartate aminotransferase measurement (enzymatic activity/ volume) 17 U/L 5-34 Serum or plasma alanine aminotransferase measurement (enzymatic activity/volume ) 21 U/L 0-55 Serum or plasma protein measurement (mass/volume) 7.4 g/dL 6.4-8.2 Serum or plasma albumin measurement (mass/volume) 4.2 g/dL 3.2-4.5 Lipid 1996 panel - 02/19/17 08:05 Serum or plasma triglyceride measurement (mass/volume) 135 mg/dL <150 Serum or plasma cholesterol measurement (mass/volume) 160 mg/dL < 200 Serum or plasma cholesterol in HDL measurement (mass/volume) 55 mg/ dL 40-60 Cholesterol in LDL [mass/volume] in serum or plasma by direct assay 89 mg/dL 1-129 Serum or plasma cholesterol in VLDL measurement (mass/volume) 27 mg/ dL 5-40 PT panel in platelet poor plasma by coagulation assay - 02/19/17 08:05 Prothrombin time (PT) in platelet poor plasma by coagulation assay 12.4 s 12.2-14.7 INR in platelet poor plasma or blood by coagulation assay 0.9 0.8-1.4 Activated partial thromboplastin time (aPTT) in platelet poor plasma bycoagulation assay - 02/19/17 08:05 Activated partial thromboplastin time (aPTT) in platelet poor plasma bycoagulation assay 25 s 24-35 Methicillin resistant Staphylococcus aureus (MRSA) screening culture - 08:06 Methicillin resistant Staphylococcus aureus (MRSA) screening culture NEG NRG Activated partial thromboplastin time (aPTT) in platelet poor plasma bycoagulation assay - 02/19/17 14:50 Activated partial thromboplastin time (aPTT) in platelet poor plasma bycoagulation assay 72 s 24-35 Activated partial thromboplastin time (aPTT) in platelet poor plasma bycoagulation assay - 02/19/17 16:20 Activated partial thromboplastin time (aPTT) in platelet poor plasma bycoagulation assay 40 s 24-35 Automated blood complete blood count (hemogram) panel - 02/20/17 04:12 Blood leukocytes automated count (number/volume) 6.9 10*3/uL 4.3-11.0 Blood erythrocytes automated count (number/volume) 3.61 10*6/uL 4.35-5.85 Venous blood hemoglobin measurement (mass/volume) 11.2 g/dL 13.3-17.7 Blood hematocrit (volume fraction) 35 % 40-54 Automated erythrocyte mean corpuscular volume 97 [foz_us] 80-99 Automated erythrocyte mean corpuscular hemoglobin (mass per erythrocyte) 31 pg 25-34 Automated erythrocyte mean corpuscular hemoglobin concentration measurement ( mass/volume) 32 g/dL 32-36 Automated erythrocyte distribution width ratio 14.3 % 10.0-14.5 Automated blood platelet count (count/volume) 123 10*3/uL 130-400 Automated blood platelet mean volume measurement 10.2 [foz_us] 7.4-10.4 Whole blood basic metabolic panel - 02/20/17 04:12 Serum or plasma sodium measurement (moles/volume) 141 mmol/L 135-145 Serum or plasma potassium measurement (moles/volume) 4.4 mmol/L 3.6-5.0 Serum or plasma chloride measurement (moles/volume) 111 mmol/L 98-107 Carbon dioxide 21 mmol/L 21-32 Serum or plasma anion gap determination (moles/volume) 9 mmol/L 5-14 Serum or plasma urea nitrogen measurement (mass/volume) 21 mg/dL 7-18 Serum or plasma creatinine measurement (mass/volume) 1.11 mg/dL 0.60-1.30 Serum or plasma urea nitrogen/creatinine mass ratio 19 NRG Serum or plasma creatinine measurement with calculation of estimated glomerular filtration rate > NRG Serum or plasma glucose measurement (mass/volume) 139 mg/dL 70-105 Serum or plasma calcium measurement (mass/volume) 8.5 mg/dL 8.5-10.1 Encounters ACCT No. Visit Date/Time Discharge Status Pt. Type Provider Facility Loc./Unit Complaint [id number] 02/19/2017 07:33:00 02/20/2017 09:08:00 DIS Outpatient JULIETTE MAHAN MD [facility] CATH ABN CALE [id number] 02/12/2017 11:36:00 02/12/2017 23:59:59 CLS Outpatient JOSE G MIGUEL [facility] CARD CAD I25.10 [id number] 06/01/2015 08:46:00 06/01/2015 23:59:59 CLS Outpatient NICOLE HAYWARD MD [facility] RAD RENAL FAILURE,HTN [id number] 11/04/2014 08:37:00 11/04/2014 23:59:59 CLS Outpatient GIOVANNI DPM, SEFERINO Q [facility] RAD DIMINISHED PEDAL PULSES [id number] 10/12/2014 08:19:00 10/12/2014 23:59:59 CLS Outpatient JULIETTE MAHAN MD [facility] CARD CAD,ROSEANNA,HTN,HLP [id number] 09/27/2014 07:41:00 09/27/2014 23:59:59 CLS Outpatient JULIETTE MAHAN MD [facility] CARD CAD,ROSEANNA,HTN,HLP [id number] 04/28/2013 07:31:00 04/28/2013 23:59:59 CLS Outpatient JOSE G MIGUEL [facility] CARD CAD,HTN,HLP [id number] 08/14/2014 15:27:00 Document Registration [id number] 03/12/2011 10:00:00 Document Registration [id number] 09/12/2009 07:34:00 Document Registration [id number] 09/05/2009 10:28:00 Document Registration [email or web address] 11/05/2014 04:12:17 ACT Document Registration
[2018-03-07] MEDS ORDERED: NS IV 1000 ML 1,000 ML IV ONE (18:48)
[2018-03-07 18:54] VITALS: BP 134/70
[2018-03-07 18:59] LABS: BASOPHILS % (AUTO) 0 % (0-10); EOSINOPHILS % (AUTO) 0 % (0-10); HEMATOCRIT 34 % (40-54); HEMOGLOBIN 11.1 G/DL (13.3-17.7); LYMPHOCYTES # (AUTO) 0.4 X 10^3 (1.0-4.0); LYMPHOCYTES % (AUTO) 4 % (12-44); MEAN CORPUSCULAR HEMOGLOBIN 31 PG (25-34); MEAN CORPUSCULAR HGB CONC 33 G/DL (32-36); MEAN CORPUSCULAR VOLUME 96 FL (80-99); MEAN PLATELET VOLUME 9.7 FL (7.4-10.4); MONOCYTES # (AUTO) 0.8 X 10^3 (0.0-1.0); MONOCYTES % (AUTO) 7 % (0-12); NEUTROPHILS # (AUTO) 10.6 X 10^3 (1.8-7.8); NEUTROPHILS % (AUTO) 90 % (42-75); PLATELET COUNT 192 10^3/uL (130-400); RED BLOOD COUNT 3.56 10^6/uL (4.35-5.85); WHITE BLOOD COUNT 11.8 10^3/uL (4.3-11.0)
[2018-03-07 19:05] LABS: INR 1.1 (0.8-1.4); PROTHROMBIN TIME PATIENT 14.7 SEC (12.2-14.7)
[2018-03-07 19:11] LABS: ALBUMIN 3.9 GM/DL (3.2-4.5); BILIRUBIN,TOTAL 0.7 MG/DL (0.1-1.0); CREATININE SERUM 1.99 MG/DL (0.60-1.30); POTASSIUM 4.4 MMOL/L (3.6-5.0); TOTAL PROTEIN 7.8 GM/DL (6.4-8.2)
[2018-03-07] MEDS ORDERED: ACETAMINOPHEN 500 MG TAB (TYLENOL) PO STA (19:29)
--- NOTE | 2018-03-07 19:29 | ED General ---
General Chief Complaint: General Problems/Pain Stated Complaint: HAVING CHILLS Nursing Triage Note: HASNT FELT RIGHTR ALL WEAK, CHILLS, WEAKNESS, TIRED. Nursing Sepsis Screen: No Definite Risk Source of Information: Patient Exam Limitations: No Limitations History of Present Illness Date Seen by Provider: Mar 07, 2018 Time Seen by Provider: 18:40 Initial Comments Here with report of fever and chills as well as weakness. Also reports short of breath. Mild cough. Woke up this morning and apparently had a sweat overnight. Had chills and shaking this morning. Has loose stools but no diarrhea. Denies dysuria. Timing/Duration: 2-3 Days, Getting Worse Severity: Moderate Associated Systoms: No Chest Pain; Cough, Fever/Chills, Malaise; No Nausea/ Vomiting; Shortness of Air, Weakness Allergies and Home Medications Allergies Coded Allergies: No Known Drug Allergies (Verified , 03/07/18) Home Medications Aspirin 81 Mg Tablet.dr, 81 MG PO DAILY Prescribed by: JULIETTE MAHAN on 02/20/17 0805 Clopidogrel Bisulfate 75 Mg Tablet, 75 MG PO DAILY, (Reported) Fenofibrate Nanocrystallized 145 Mg Tablet, 145 MG PO DAILY, (Reported) Losartan/Hydrochlorothiazide 1 Each Tablet, 1 EACH PO DAILY, (Reported) Metoprolol Succinate 25 Mg Tab.er.24h, 25 MG PO DAILY, (Reported) Ranitidine HCl 150 Mg Tablet, 150 MG PO BID, (Reported) Simvastatin 20 Mg Tablet, 20 MG PO HS, (Reported) Sitagliptin Phosphate 50 Mg Tablet, 50 MG PO DAILY, (Reported) Patient Home Medication List Home Medication List Reviewed: Yes Review of Systems Review of Systems Constitutional: see HPI, chills, fever, weakness EENTM: no symptoms reported; No nose congestion, No throat pain Respiratory: cough, short of breath Cardiovascular: No chest pain, No edema Gastrointestinal: No abdominal pain, No nausea, No vomiting Genitourinary: no symptoms reported Musculoskeletal: no symptoms reported Skin: no symptoms reported Psychiatric/Neurological: No Symptoms Reported All Other Systems Reviewed Negative Unless Noted: Yes Past [place]-Pvmusy-Szhgdk Hx Past Med/Social Hx: Reviewed Nursing Past Med/Soc Hx Patient Social History Alcohol Use: Occasionally Uses Alcohol Beverage of Choice: Beer Recreational Drug Use: No Smoking Status: Never a Smoker Former Smoker, Quit: Feb 20, 1984 Recent Foreign Travel: No Contact w/Someone Who Travel: No Recent Infectious Disease Expo: No Recent Hopitalizations: Yes Physical Abuse: No Sexual Abuse: No Immunizations Up To Date Date of Pneumonia Vaccine: Feb 19, 2006 Past Medical History Surgeries: Yes (MARCELA ECHAVARRIA) Respiratory: No Cardiac: Yes Neurological: No Reproductive Disorders: No Genitourinary: No Gastrointestinal: Yes Gastroesophageal Reflux Musculoskeletal: No Endocrine: Yes HEENT: No Cancer: No Psychosocial: No Integumentary: No Blood Disorders: No Family Medical History Reviewed Nursing Family Hx No Pertinent Family Hx Physical Exam-Suspected Sepsis Physical Exam Vital Signs Vital Signs - First Documented 03/07/18 18:28 Temp 99.7 Pulse 74 Resp 12 B/P (MAP) 134/70 Pulse Ox 95 Capillary Refill : Less Than 3 Seconds Blood Pressure Mean: 91 Height, Weight, BMI Height: 5'9.00" Weight: 170lbs. 4.0oz. [id number]; 25.1 BMI Method:Stated General Appearance: No Apparent Distress, WD/WN HEENT: PERRL/EOMI, Pharynx Normal Neck: Non Tender, Supple Respiratory: No Respiratory Distress, Crackles (left base) Cardiovascular: Regular Rate, Rhythm, No Murmur Gastrointestinal: Non Tender, Soft Back: Normal Inspection, No CVA Tenderness, No Vertebral Tenderness Extremity: Normal Capillary Refill, Normal Range of Motion, Non Tender Neurologic/Psychiatric: Alert, Oriented x3 Skin: normal color, warm/dry Focused Exam Lactate Level 03/07/18 18:41: Lactic Acid Level 1.77 Lactic Acid Level Laboratory Tests Test 03/07/18 18:41 Lactic Acid Level 1.77 MMOL/L (0.50-2.00) Progress/Results/Core Measures Suspected Sepsis Recent Fever Within 48 Hours: No Infection Criteria Present: None New/Unexplained Altered Menta: No Sepsis Screen: No Definite Risk SIRS Temperature:100.6 Pulse: 74 Respiratory Rate: 12 Laboratory Tests 03/07/18 18:41: White Blood Count 11.8H Blood Pressure 134 /70 Mean: 91 03/07/18 18:41: Lactic Acid Level 1.77 Laboratory Tests 03/07/18 18:41: Creatinine 1.99H, INR Comment 1.1, Platelet Count 192, Total Bilirubin 0.7 Results/Orders Lab Results Laboratory Tests Test 03/07/18 18:41 03/07/18 19:53 Range/Units White Blood Count 11.8 H 4.3-11.0 10^3/uL Red Blood Count 3.56 L 4.35-5.85 10^6/uL Hemoglobin 11.1 L 13.3-17.7 G/DL Hematocrit 34 L 40-54 % Mean Corpuscular Volume 96 80-99 FL Mean Corpuscular Hemoglobin 31 25-34 PG Mean Corpuscular Hemoglobin Concent 33 32-36 G/DL Red Cell Distribution Width 15.0 H 10.0-14.5 % Platelet Count 192 130-400 10^3/uL Mean Platelet Volume 9.7 7.4-10.4 FL Neutrophils (%) (Auto) 90 H 42-75 % Lymphocytes (%) (Auto) 4 L 12-44 % Monocytes (%) (Auto) 7 0-12 % Eosinophils (%) (Auto) 0 0-10 % Basophils (%) (Auto) 0 0-10 % Neutrophils # (Auto) 10.6 H 1.8-7.8 X 10^3 Lymphocytes # (Auto) 0.4 L 1.0-4.0 X 10^3 Monocytes # (Auto) 0.8 0.0-1.0 X 10^3 Eosinophils # (Auto) 0.0 0.0-0.3 10^3/uL Basophils # (Auto) 0.0 0.0-0.1 10^3/uL Neutrophils % (Manual) 91 % Lymphocytes % (Manual) 4 % Monocytes % (Manual) 4 % Eosinophils % (Manual) 0 % Basophils % (Manual) 0 % Band Neutrophils 1 % Blood Morphology Comment NORMAL Prothrombin Time 14.7 12.2-14.7 SEC INR Comment 1.1 0.8-1.4 Activated Partial Thromboplast Time 41 H 24-35 SEC Sodium Level 138 135-145 MMOL/L Potassium Level 4.4 3.6-5.0 MMOL/L Chloride Level 102 98-107 MMOL/L Carbon Dioxide Level 24 21-32 MMOL/L Anion Gap 12 5-14 MMOL/L Blood Urea Nitrogen 41 H 7-18 MG/DL Creatinine 1.99 H 0.60-1.30 MG/DL Estimat Glomerular Filtration Rate 32 BUN/Creatinine Ratio 21 Glucose Level 149 H 70-105 MG/DL Lactic Acid Level 1.77 0.50-2.00 MMOL/L Calcium Level 10.0 8.5-10.1 MG/DL Corrected Calcium 10.1 8.5-10.1 MG/DL Total Bilirubin 0.7 0.1-1.0 MG/DL Aspartate Amino Transf (AST/SGOT) 16 5-34 U/L Alanine Aminotransferase (ALT/SGPT) 13 0-55 U/L Alkaline Phosphatase 40 40-136 U/L Total Protein 7.8 6.4-8.2 GM/DL Albumin 3.9 3.2-4.5 GM/DL Urine Color YELLOW Urine Clarity CLEAR Urine pH 5 5-9 Urine Specific [place] 1.015 L 1.016-1.022 Urine Protein 3+ H NEGATIVE Urine Glucose (UA) NEGATIVE NEGATIVE Urine Ketones NEGATIVE NEGATIVE Urine Nitrite NEGATIVE NEGATIVE Urine Bilirubin NEGATIVE NEGATIVE Urine Urobilinogen NORMAL NORMAL MG/DL Urine Leukocyte Esterase 1+ H NEGATIVE Urine RBC (Auto) 1+ H NEGATIVE Urine RBC RARE /HPF Urine WBC 0-2 /HPF Urine Crystals NONE /LPF Urine Bacteria NEGATIVE /HPF Urine Casts PRESENT /LPF Urine Hyaline Casts 5-10 H /LPF Urine Mucus LARGE H /LPF Urine Culture Indicated NO My Orders Orders - RAMU KIDD MD Cbc With Automated Diff (03/07/18 18:48) Comprehensive Metabolic Panel (03/07/18 18:48) Blood Culture (03/07/18 18:48) Sputum Culture (03/07/18 18:48) Urinalysis (03/07/18 18:48) Urine Culture (03/07/18 18:48) Protime With Inr (03/07/18 18:48) Partial Thromboplastin Time (03/07/18 18:48) Chest 1 View, Ap/Pa Only (03/07/18 18:48) Saline Lock/Iv-Start (03/07/18 18:48) Vital Signs Adult Sepsis Patie Q15M (03/07/18 18:48) O2 (03/07/18 18:48) Remove Rings In Anticipation O (03/07/18 18:48) Lactic Acid Analyzer (03/07/18 18:48) Ns Iv 1000 Ml (Sodium Chloride 0.9%) (03/07/18 18:48) Manual Differential (03/07/18 18:41) Acetaminophen Tablet (Tylenol Tablet) (03/07/18 19:29) Ceftriaxone For Iv Use (Rocephin For I (03/07/18 20:30) Medications Given in ED Current Medications Medications Dose Ordered Sig/Adolph Route Start Time Stop Time Status Last Admin Dose Admin Sodium Chloride 1,000 ml @ 0 mls/hr Q0M ONCE IV 03/07/18 18:48 03/07/18 18:49 DC 03/07/18 19:03 1,000 MLS/HR Vital Signs/I&O 03/07/18 03/07/18 03/07/18 18:28 18:48 18:54 Temp 99.7 99.7 100.6 Pulse 74 74 74 Resp 12 12 12 B/P (MAP) 134/70 134/70 (91) 134/70 (91) Pulse Ox 95 95 95 Capillary Refill : Less Than 3 Seconds Blood Pressure Mean: 91 Progress Note : Progress Note Seen and evaluated. IV, labs, UA, chest x-ray, blood cultures like acid ordered. Normal saline 1 L bolus. Monitor patient. Temperature has increased to 100.6. Tylenol 1 g by mouth ordered. Monitor patient. 2021: Pneumonia noted. Lactic acid negative but creatinine elevated at just under 2. Patient' s meets criteria for inpatient treatment given the pneumonia and renal failure. Rocephin 1 g IV initiated. I did discuss the case with Dr. Pittman and she accepts patient for admission, inpatient status. This was discussed with the patient who agrees with the plan. Pneumonia protocol initiated. Patient to be on sliding scale. Diagnostic Imaging Diagonstic Imaging: Xray Plain Films/CT/US/NM/MRI: chest Comments VIA [facility]. [place], [place] NAME: NICOLE TAYLOR [facility] REC#: [id number] PT STATUS: REG ER : [id number] PHYSICIAN: RAMU KIDD MD ADMIT DATE: 03/07/18/ER Draft Date of Exam:03/07/18 CHEST 1 VIEW, AP/PA ONLY EXAMINATION: Chest radiograph, portable AP view. DATE: 03/07/2018 at 1902 hours. INDICATION: 87-year-old male, fever, weakness, chills. COMPARISON: February 19, 2017. FINDINGS: There is new nonspecific airspace consolidation in the left lung base. Heart size and mediastinal contours are unchanged. There is no identified pneumothorax. There is no large pleural effusion. IMPRESSION: New nonspecific airspace consolidation in the left lung base likely reflecting infiltrate and/or atelectasis. Dictated on workstation # [id number] Dict: 03/07/181941 Trans: 03/07/181944 [facility] [id number] Interpreted by: DASIA TEE MD Electronically signed by: Reviewed: Reviewed by Me Departure Communication (Admissions) Time/Spoke to Admitting Phy: 20:22 Impression Primary Impression: Pneumonia of left lower lobe due to infectious organism Additional Impression: Acute renal insufficiency Disposition: ADMITTED INPATIENT Condition: Stable Admissions Decision to Admit Reason: Admit from ER (General) Decision to Admit/Date: Mar 07, 2018 Time/Decision to Admit Time: 20:22 Departure-Patient Inst. Referrals: NICOLE HAYWARD MD (PCP/Family) Primary Care Physician RAMU KIDD MD Mar 07, 2018 19:28
[2018-03-07 19:40] LABS: BAND NEUTROPHILS 1 %; BASOPHILS % (MANUAL) 0 %; EOSINOPHILS % (MANUAL) 0 %; LYMPHOCYTES % (MANUAL) 4 %; MONOCYTES % (MANUAL) 4 %; NEUTROPHILS % (MANUAL) 91 %; RBC MORPH NORMAL
--- NOTE | 2018-03-07 19:45 | Diagnostic Imaging Report ---
EXAMINATION: Chest radiograph, portable AP view. DATE: 03/07/2018 at 1902 hours. INDICATION: 87-year-old male, fever, weakness, chills. COMPARISON: February 19, 2017. FINDINGS: There is new nonspecific airspace consolidation in the left lung base. Heart size and mediastinal contours are unchanged. There is no identified pneumothorax. There is no large pleural effusion. IMPRESSION: New nonspecific airspace consolidation in the left lung base likely reflecting infiltrate and/or atelectasis. Dictated by: Dictated on workstation # [id number]
[2018-03-07 20:04] LABS: BILIRUBIN,URINE NEGATIVE (NEGATIVE); CLARITY,URINE CLEAR; COLOR,URINE YELLOW; GLUCOSE, URINE (UA) NEGATIVE (NEGATIVE); KETONES,URINE NEGATIVE (NEGATIVE); LEUKOCYTE ESTERASE ,URINE 1+ (NEGATIVE); NITRITE,URINE NEGATIVE (NEGATIVE); PH,URINE 5 (5-9); PROTEIN,URINE 3+ (NEGATIVE); UROBILINOGEN,URINE NORMAL (NORMAL)
[2018-03-07 20:15] LABS: BACTERIA,URINE NEGATIVE /HPF; RBC,URINE RARE /HPF; WBC,URINE 0-2 /HPF
[2018-03-07] MEDS ORDERED: cefTRIAXone FOR IV USE 1,000 MG in NS (IVPB) 50 ML IV ONE (20:30)
[2018-03-07 22:00] VITALS: BP 128/59
[2018-03-07 22:38] VITALS: BP 130/66
[2018-03-07 22:47] VITALS: BP 128/59
[2018-03-07] MEDS ORDERED: RT-ALBUTEROL SULF 2.5 MG/3 ML PRE-MIX VIAL INH PRN (23:00)
[2018-03-07] MEDS ORDERED: ACETAMINOPHEN 500 MG TAB (TYLENOL) PO PRN (23:15)
[2018-03-07] MEDS ORDERED: APAP/DIPHENHYDRAMINE (TYLENOL PM) TAB NON-FORMULARY PO PRN (23:15)
[2018-03-07] MEDS: NS IV 1000 ML 1,000 ML IV SCH (23:30)
[2018-03-08] VITALS: BP 96/62
[2018-03-08 04:00] VITALS: BP 138/54
[2018-03-08] MEDS: inSUlin ASPART (NovoLOG) 1 UNIT/0.01 ML (CHARGE PER UNIT) SC SCH ×4 (07:09→16:05)
[2018-03-08 07:21] LABS: BASOPHILS % (AUTO) 0 % (0-10); EOSINOPHILS % (AUTO) 0 % (0-10); HEMATOCRIT 30 % (40-54); HEMOGLOBIN 9.7 G/DL (13.3-17.7); LYMPHOCYTES # (AUTO) 0.3 X 10^3 (1.0-4.0); LYMPHOCYTES % (AUTO) 3 % (12-44); MEAN CORPUSCULAR HEMOGLOBIN 31 PG (25-34); MEAN CORPUSCULAR HGB CONC 33 G/DL (32-36); MEAN CORPUSCULAR VOLUME 95 FL (80-99); MEAN PLATELET VOLUME 9.6 FL (7.4-10.4); MONOCYTES # (AUTO) 0.6 X 10^3 (0.0-1.0); MONOCYTES % (AUTO) 7 % (0-12); NEUTROPHILS # (AUTO) 8.3 X 10^3 (1.8-7.8); NEUTROPHILS % (AUTO) 90 % (42-75); PLATELET COUNT 167 10^3/uL (130-400); RED BLOOD COUNT 3.11 10^6/uL (4.35-5.85); RED CELL DISTRIBUTION WIDTH 14.9 % (10.0-14.5); WHITE BLOOD COUNT 9.2 10^3/uL (4.3-11.0)
[2018-03-08] MEDS: RT-ALBUTEROL SULF 2.5 MG/3 ML PRE-MIX VIAL INH SCH ×3 (07:38→20:57)
[2018-03-08 07:47] LABS: BILIRUBIN,TOTAL 0.4 MG/DL (0.1-1.0); CALCIUM 8.7 MG/DL (8.5-10.1); CREATININE SERUM 1.79 MG/DL (0.60-1.30); POTASSIUM 3.8 MMOL/L (3.6-5.0); TOTAL PROTEIN 5.9 GM/DL (6.4-8.2)
[2018-03-08 08:00] VITALS: BP 96/62
[2018-03-08] MEDS ORDERED: AZITHROMYCIN INJECTION 500 MG in NS (IVPB) 250 ML IV SCH (09:00)
[2018-03-08] MEDS: ACETAMINOPHEN 500 MG TAB (TYLENOL) PO PRN ×2 (09:24→13:58)
[2018-03-08] MEDS: NS IV 1000 ML 1,000 ML IV SCH ×3 (09:50→20:16)
[2018-03-08] MEDS ORDERED: MILK OF MAGNESIA 400 MG/5 ML 30 ML UDC PO PRN (11:00)
[2018-03-08] MEDS ORDERED: ANTACID SUSP 30 ML UDC (MYLANTA) PO PRN (11:00)
[2018-03-08] MEDS ORDERED: ONDANSETRON 4 MG/2 ML (SDV) Z0FRAN IV PRN (11:00)
[2018-03-08] MEDS ORDERED: MELATONIN 3 MG TABLET PO PRN (11:00)
[2018-03-08] MEDS ORDERED: BENZONATATE 100 MG (TESSALON) CAPSULE PO PRN (11:00)
--- NOTE | 2018-03-08 11:01 | History & Physical-Hospitalist ---
History of Present Illness HPI/Chief Complaint Pt is an 87yoCM with a PMH of HTN, CAD, IDDMII who presented to the ER with complaints of chills and lack of energy. He states his symptoms started a few days ago. He had no sick contacts. He denies any cough and is unsure if he had a fever. On presentation to the ER he was found to have a left lower lobe pneumonia and an PRASHANTH. He was admitted for IV abx and IVF for PRASHANTH. Curb65 score was 2. He reports feeling better today but did have chills and rigors again this morning. 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 Source: patient Exam Limitations: no limitations Date Seen 03/08/18 Time Seen by Provider: 10:56 Attending Physician Elisabeth Pittman MD PCP Cade Boyle MD Referring Physician Date of Admission Mar 07, 2018 at 21:05 Home Medications & Allergies Home Medications Reviewed patient Home Medication Reconciliation performed by pharmacy medication reconciliations senior service technician and/or nursing. Patients Allergies have been reviewed. Allergies Allergies Coded Allergies No Known Drug Allergies (Verified03/07/18) Past Ysomhxf-Rkecve-Tiubnz Hx Past Med/Social Hx: Reviewed Nursing Past Med/Soc Hx Patient Social History Marrital Status: Employed/Student: retired Alcohol Use: Denies Use Recreational Drug Use: No Smoking Status: Former Smoker Former Smoker, Quit: Feb 20, 1984 Physical Abuse Screen: No Sexual Abuse: No Recent Foreign Travel: No Contact w/other who traveled: No Recent Hopitalizations: No Recent Infectious Disease Expo: No Immunizations Up To Date Date of Pneumonia Vaccine: Feb 19, 2006 Seasonal Allergies Seasonal Allergies: No Past Medical History Surgeries: Abdominal, Coronary Stent, Oophorectomy Cardiac: Coronary Artery Disease, Hypertension, Peripheral Vascular Reproductive: No Gastrointestinal: Gastroesophageal Reflux Endocrine: Diabetes, Insulin dep HEENT: Cataract Hearing Impairment: Hard of Hearing, Bilateral Hearing Aide History of Blood Disorders: No Family History Reviewed Nursing Family Hx No Pertinent Family Hx Review of Systems Constitutional: chills, malaise, weakness EENTM: no symptoms reported Respiratory: No cough, No phlegm, No short of breath Cardiovascular: no symptoms reported Gastrointestinal: No abdominal pain; loss of appetite; No nausea, No vomiting Musculoskeletal: no symptoms reported Skin: no symptoms reported Physical Exam Physical Exam Vital Signs Vital Signs - First Documented 03/07/18 03/07/18 03/07/18 18:28 22:00 22:38 Temp 99.7 Pulse 74 Resp 12 B/P (MAP) 134/70 Pulse Ox 95 O2 Delivery Room Air FiO2 21 Capillary Refill : Less Than 3 Seconds Height, Weight, BMI Height: 5'9.00" Weight: 153lbs. 6.4oz. 69.415248ko; 22.7 BMI Method:Stated General Appearance: No Apparent Distress, WD/WN HEENT: Moist Mucous Membranes; No Scleral Icterus (L), No Scleral Icterus (R) Neck: Supple; No Lymphadenopathy (L), No Lymphadenopathy (R) Respiratory: Lungs Clear, No Accessory Muscle Use, No Respiratory Distress Cardiovascular: Regular Rate, Rhythm, No Edema, No Murmur, Normal Peripheral Pulses Gastrointestinal: Normal Bowel Sounds, Non Tender, Soft Extremity: No Calf Tenderness, No Pedal Edema Neurologic/Psychiatric: Alert, Oriented x3, No Motor/Sensory Deficits, Other ( tearful during exam) Skin: Ecchymosis (over arms) Results Results/Procedures Labs Laboratory Tests 03/07/18 18:41 03/08/18 06:50 Patient resulted labs reviewed. Imaging: Reviewed Imaging Report Assessment/Plan Admission Diagnosis Pneumonia Admission Status: Inpatient Order (span 2 midnights) Reason for Inpatient Admission: Will need more than tow midnight to stabilize Diagnosis/Problems Diagnosis/Problems (1) Pneumonia of left lower lobe due to infectious organism Status: Acute Assessment & Plan: CAP criteria CURB 65 of 2 Continue rocephin and azithromycin Does not meet sepsis criteria (2) PRASHANTH (acute kidney injury) Assessment & Plan: Improving but not back to baseline Continue IVF Monitor I/Os (3) Essential (primary) hypertension Assessment & Plan: On the lower end of normal trend Hold home BP meds (4) Insulin dependent diabetes mellitus Assessment & Plan: Resume home Lantus Continue Sliding Scale (5) Prophylactic measure Assessment & Plan: IVF Hold Lovenox for anemia today ADA diet Clinical Quality Measures DVT/VTE Risk/Contraindication: Risk Factor Score Per Nursin RFS Level Per Nursing on Admit: 4+=Very High ELISABETH PITTMAN MD Mar 08, 2018 11:01
[2018-03-08] MEDS ORDERED: INSU100V6 SQ (11:26)
[2018-03-08 12:00] VITALS: BP 110/52
[2018-03-08] MEDS ORDERED: IBUPROFEN 800 MG (MOTRIN) TAB PO PRN (15:00)
[2018-03-08] MEDS ORDERED: IBUPROFEN 600 MG (MOTRIN) TAB PO PRN (15:15)
[2018-03-08 15:51] VITALS: BP 108/54
[2018-03-08 19:00] VITALS: BP 107/53
[2018-03-08] MEDS: cefTRIAXone FOR IV USE 1,000 MG in NS (IVPB) 50 ML IV SCH (20:09)
[2018-03-08] MEDS: inSUlin DETERMIR 1 UNIT/0.01 ML (LEVEMIR) CHARGE PER UNIT SQ SCH (21:26)
[2018-03-09] VITALS: BP 107/81
[2018-03-09] MEDS: RT-ALBUTEROL SULF 2.5 MG/3 ML PRE-MIX VIAL INH SCH ×4 (02:13→21:09)
[2018-03-09 04:00] VITALS: BP 105/51
[2018-03-09] MEDS: ACETAMINOPHEN 500 MG TAB (TYLENOL) PO PRN ×3 (04:22→17:13)
[2018-03-09] MEDS: inSUlin ASPART (NovoLOG) 1 UNIT/0.01 ML (CHARGE PER UNIT) SC SCH ×4 (06:06→20:53)
[2018-03-09] MEDS: NS IV 1000 ML 1,000 ML IV SCH ×2 (07:02→18:04)
[2018-03-09 08:00] VITALS: BP 129/88
[2018-03-09] MEDS: IBUPROFEN 600 MG (MOTRIN) TAB PO PRN ×2 (08:44→18:07)
[2018-03-09] MEDS: AZITHROMYCIN 250 MG TAB (ZITHROMAX) PO SCH (08:44)
[2018-03-09 12:00] VITALS: BP 127/60
--- NOTE | 2018-03-09 14:48 | Progress Note-Hospitalist ---
Progress Note Progress Notes/Assess & Plan Date Seen 03/09/18 Time Seen by Provider: 14:46 Assessment & Plan The patient is in 87-year-old white male known to me for the last 30 years or so. He reports that he began to feel rough on Friday afternoon and ultimately came to the emergency room. He was febrile and his chest x-ray suggested a lower lobe infiltrate. His white count was 11.8 at admission and is now 9.2. He is running a fever this morning but reports he feels much better than he had. Physical exam: He is alert and sitting in the chair at bedside. He recognizes me. Lungs are clear to auscultation. CV is regular without murmur. Abdomen is soft. Extremities show no pedal edema. Impression: Febrile illness Plan: Await final culture reports. Continue IV fluids and antibiotics until culture reports are final. Focused Exam Lactate Level 03/07/18 18:41: Lactic Acid Level 1.77 CHRISTINA ALFARO MD Mar 09, 2018 14:48
[2018-03-09 15:52] VITALS: BP 134/63
[2018-03-09 19:22] VITALS: BP 140/56
[2018-03-09] MEDS: inSUlin DETERMIR 1 UNIT/0.01 ML (LEVEMIR) CHARGE PER UNIT SQ SCH (20:52)
[2018-03-09] MEDS: cefTRIAXone FOR IV USE 1,000 MG in NS (IVPB) 50 ML IV SCH (20:54)
[2018-03-10 01:00] VITALS: BP 135/65
[2018-03-10] MEDS: RT-ALBUTEROL SULF 2.5 MG/3 ML PRE-MIX VIAL INH SCH ×4 (02:40→19:21)
[2018-03-10] MEDS: NS IV 1000 ML 1,000 ML IV SCH ×2 (04:34→14:48)
[2018-03-10 04:41] VITALS: BP 130/77
[2018-03-10] MEDS: inSUlin ASPART (NovoLOG) 1 UNIT/0.01 ML (CHARGE PER UNIT) SC SCH ×4 (05:20→20:25)
[2018-03-10 08:00] VITALS: BP 146/66
[2018-03-10] MEDS: AZITHROMYCIN 250 MG TAB (ZITHROMAX) PO SCH (08:05)
[2018-03-10 12:00] VITALS: BP 142/58
--- NOTE | 2018-03-10 12:20 | Progress Note-Hospitalist ---
Progress Note Progress Notes/Assess & Plan Date Seen 03/10/18 Time Seen by Provider: 12:16 Assessment & Plan The patient reports he is feeling better today. His cultures have returned negative. He has a modest cough with only occasional mucus production. He does not feel short of breath. He continues to be febrile with a peak temperature of 101.3 at 1800 yesterday. He registered 100.2 at 0700 this morning. Physical exam: shows him to be sitting in the bedside chair. Lungs show somewhat distant breath sounds. CV is regular. Impression: Persistent febrile illness. Plan: Continue present antibiotics. Consider discharge in the a.m. Focused Exam Lactate Level 03/07/18 18:41: Lactic Acid Level 1.77 CHRISTINA ALFARO MD Mar 10, 2018 12:20
[2018-03-10 13:25] LABS: CALCIUM 8.6 MG/DL (8.5-10.1); CREATININE SERUM 1.27 MG/DL (0.60-1.30); POTASSIUM 3.8 MMOL/L (3.6-5.0)
[2018-03-10] MEDS: IBUPROFEN 600 MG (MOTRIN) TAB PO PRN (14:56)
[2018-03-10 16:00] VITALS: BP 136/64
[2018-03-10] MEDS: cefTRIAXone FOR IV USE 1,000 MG in NS (IVPB) 50 ML IV SCH (20:24)
[2018-03-10] MEDS: inSUlin DETERMIR 1 UNIT/0.01 ML (LEVEMIR) CHARGE PER UNIT SQ SCH (20:36)
[2018-03-10 20:39] VITALS: BP 172/74
[2018-03-11] VITALS: BP 166/71
[2018-03-11] MEDS: NS IV 1000 ML 1,000 ML IV SCH (01:40)
[2018-03-11] MEDS: RT-ALBUTEROL SULF 2.5 MG/3 ML PRE-MIX VIAL INH SCH ×2 (02:58→08:34)
[2018-03-11 04:00] VITALS: BP 158/70
[2018-03-11] MEDS: inSUlin ASPART (NovoLOG) 1 UNIT/0.01 ML (CHARGE PER UNIT) SC SCH ×2 (06:42→10:26)
[2018-03-11 08:00] VITALS: BP 138/63
[2018-03-11] MEDS: AZITHROMYCIN 250 MG TAB (ZITHROMAX) PO SCH (08:49)
--- NOTE | 2018-03-11 09:01 | Discharge Summary-Hospitalist ---
BLAIRE ORDAZ MEDICAL STUDENT 03/11/18 0901: Diagnosis/Chief Complaint Date of Admission Mar 07, 2018 at 21:05 Date of Discharge Admission Diagnosis Pneumonia Discharge Diagnosis (1) Pneumonia of left lower lobe due to infectious organism Status: Acute Assessment & Plan: CAP criteria CURB 65 of 2 Continue rocephin and azithromycin Does not meet sepsis criteria (2) PRASHANTH (acute kidney injury) Status: Acute Assessment & Plan: Improving but not back to baseline Continue IVF Monitor I/Os (3) Essential (primary) hypertension Status: Chronic Assessment & Plan: On the lower end of normal trend Hold home BP meds (4) Insulin dependent diabetes mellitus Status: Chronic Assessment & Plan: Resume home Lantus Continue Sliding Scale (5) Prophylactic measure Assessment & Plan: IVF Hold Lovenox for anemia today ADA diet Discharge Summary Discharge Physical Exam Allergies: Coded Allergies: No Known Drug Allergies (Verified , 03/07/18) Vitals & I&Os Vital Signs Date Time Temp Pulse Resp B/P (MAP) Pulse Ox O2 Delivery O2 Flow Rate FiO2 03/11/18 08:34 91 Room Air 03/11/18 04:00 98.0 70 16 158/70 (99) 03/10/18 20:00 1.50 03/07/18 22:38 21 General Appearance: No Apparent Distress Respiratory: No Accessory Muscle Use, No Respiratory Distress, Crackles ( Bilateral lung bases) Cardiovascular: Regular Rate, Rhythm, No Edema Gastrointestinal: Normal Bowel Sounds Extremity: Pedal Edema Skin: Normal Color, Cool Neurologic/Psychiatric: Alert Hospital Course Mr. Irene is an 87 year old male with a history of HTN, CAD, type 2 diabetes that presented to the ED with chills and decreased energy found to have a LLL pneumonia and PRASHANTH. Blood cultures and flu testing was negative. He was admitted and given IV fluids, which resolved his PRASHANTH, and he was given azithromycin and ceftriaxone for treatment of his pneumonia. He improved clinically and was ready for discharge on hospital day 4. He was discharged on Cefdinir to be completed on 03/14 for a 7 day course. Labs (last 24 hrs) Laboratory Tests 03/10/18 10:15: Glucometer 79 03/10/18 13:00: Sodium Level 139, Potassium Level 3.8, Chloride Level 112H, Carbon Dioxide Level 18L, Anion Gap 9, Blood Urea Nitrogen 28H, Creatinine 1.27, Estimat Glomerular Filtration Rate 54, BUN/Creatinine Ratio 22, Glucose Level 123H, Calcium Level 8.6 03/10/18 15:27: Glucometer 110 03/10/18 20:25: Glucometer 167H 03/11/18 06:22: Glucometer 85 Microbiology 03/07/18 Blood Culture - Preliminary, Resulted No growth 03/08/18 Influenza Types A,B Antigen (LUKE) - Final, Complete 03/07/18 Urine Culture - Final, Complete See Report Patient resulted labs reviewed. Pending Labs Laboratory Tests 03/11/18 06:22: Glucometer 85 Imaging: Reviewed Imaging Report Discharge Home Medications: Active Scripts Active Aspirin EC (Aspirin) 81 Mg Tablet.dr 81 Mg PO DAILY Reported Lantus (Insulin Glargine,Hum.rec.anlog) 100 Unit/1 Ml Vial 10 Unit SQ HS Fenofibrate (Fenofibrate Nanocrystallized) 145 Mg Tablet 145 Mg PO DAILY Acid Roof Cement And Paint Maker Helper (RANITIDINE) (Ranitidine HCl) 150 Mg Tablet 150 Mg PO BID Losartan-Hctz 100-25 mg Tab (Losartan/Hydrochlorothiazide) 1 Each Tablet 1 Each PO DAILY Metoprolol Succinate 25 Mg Tab.er.24h 25 Mg PO DAILY Simvastatin 20 Mg Tablet 20 Mg PO HS Clopidogrel (Clopidogrel Bisulfate) 75 Mg Tablet 75 Mg PO DAILY Instructions to patient/family Please see electronic discharge instructions given to patient. Clinical Quality Measures DVT/VTE Risk/Contraindication: Risk Factor Score Per Nursin RFS Level Per Nursing on Admit: 4+=Very High BOB JC DO 03/11/18 1055: Diagnosis/Chief Complaint Discharge Diagnosis (1) Pneumonia of left lower lobe due to infectious organism Status: Acute Assessment & Plan: CAP criteria CURB 65 of 2 Continue rocephin and azithromycin Does not meet sepsis criteria (2) Acute renal insufficiency Status: Acute (3) Hypoglycemia due to insulin Status: Resolved (4) Advanced age Status: Chronic (5) PRASHANTH (acute kidney injury) Status: Acute Assessment & Plan: Improving but not back to baseline Continue IVF Monitor I/Os (6) Essential (primary) hypertension Status: Chronic Assessment & Plan: On the lower end of normal trend Hold home BP meds (7) Insulin dependent diabetes mellitus Status: Chronic Assessment & Plan: Resume home Lantus Continue Sliding Scale Discharge Summary Discharge Physical Exam Allergies: Coded Allergies: No Known Drug Allergies (Verified , 03/07/18) General Appearance: No Apparent Distress, WD/WN, Chronically ill Respiratory: Chest Non Tender, No Accessory Muscle Use, No Respiratory Distress , Crackles (bases) Cardiovascular: Regular Rate, Rhythm, No Edema, No Gallop, No JVD, No Murmur, Normal Peripheral Pulses Hospital Course Patient had an uneventful hospital course and responded to abx and nebs and O2 quickly. Pt was ready for DC and PCP will see him in close f/u and I adjusted Levemir insulin from 10 units at night to 5 units until he sees PCP. Discussion & Recommendations Discharge Planning: <30 minutes discharge planning BLAIRE ORDAZ MEDICAL STUDENT Mar 11, 2018 09:01 BOB JC DO Mar 11, 2018 10:55
[2018-03-11] MEDS ORDERED: CEFD300C3 PO (10:20)
[2018-03-11] MEDS ORDERED: BENZ-36 PO (10:20)
[2018-03-11] MEDS ORDERED: INSU100V6 SQ (10:20)
[2018-03-11 12:00] VITALS: BP 160/70
== END 2018-03-11 12:35 | disposition home or self-care (01) | DRG 194 ==
LOC: EDUNIT# 18:23 → ER 18:24 → 4TH 21:05
PROVIDERS: ADMIT Family Medicine; ATTEND Family Medicine
DX: J18.9 Pneumonia, unspecified organism (principal); N17.9 Acute kidney failure, unspecified; I10 Essential (primary) hypertension; E11.649 Type 2 diabetes mellitus with hypoglycemia without coma; T38.3X5A Adverse effect of insulin and oral hypoglycemic [antidiabetic] drugs, initial encounter; I25.10 Atherosclerotic heart disease of native coronary artery without angina pectoris; I73.9 Peripheral vascular disease, unspecified; Z66 Do not resuscitate; K21.9 Gastro-esophageal reflux disease without esophagitis; H91.93 Unspecified hearing loss, bilateral; Z87.891 Personal history of nicotine dependence; Z79.4 Long term (current) use of insulin
CPT/HCPCS: 36415; 71045; 80048; 80053; 81000; 82962; 83605; 85007; 85025; 85027; 85610; 85730; 87040; 87088; 87804; 94640; 94664; 94760; 96361; 96365

== ENCOUNTER 2018-03-13 16:08 | Emergency (ER) | payer MEDICARE, OTHER ==
[~2018-03-13] VITALS: Ht 175.3 cm; Wt 69.4 kg
[~2018-03-13 16:08] MED LIST changes: +BENZ-36 PO; +CEFD300C3 PO; +INSU100V6 SQ
--- NOTE | 2018-03-13 18:05 | ED Cardiac General ---
History of Present Illness General Chief Complaint: Cardiac/General Problems Stated Complaint: LOWER PART OF BODY SWOLLEN Nursing Triage Note: PT AMBULATED TO ROOM 5 PT CO OF SWELLING IN LOWER EXT UP TO TESTICLES. PT WAS RELEASED FROM HOSP ON FRIDAY Source: patient Exam Limitations: no limitations History of Present Illness Date Seen by Provider: Mar 13, 2018 Time Seen by Provider: 18:00 Initial Comments Patient is an 87-year-old male who presents to the emergency room with complaints of bilateral lower extremity and swelling up into his hips and testicles that started yesterday. He reports that he was released from the hospital on Friday for a short stay with a diagnosis of pneumonia. He denies shortness of breath, fevers, chest pain. Timing/Duration: 1-2 days Associated Systoms: Denies Symptoms Allergies and Home Medications Allergies Coded Allergies: No Known Drug Allergies (Verified , 03/07/18) Home Medications Aspirin 81 Mg Tablet., 81 MG PO DAILY Prescribed by: JULIETTE MAHAN on 02/20/17 0805 Benzonatate 100 Mg Capsule, 100 MG PO TID PRN for COUGH Prescribed by: BOB JC on 03/11/18 1020 Cefdinir 300 Mg Capsule, 300 MG PO BID Prescribed by: BOB JC on 03/11/18 1020 Clopidogrel Bisulfate 75 Mg Tablet, 75 MG PO DAILY, (Reported) Fenofibrate Nanocrystallized 145 Mg Tablet, 145 MG PO DAILY, (Reported) Furosemide 20 Mg Tablet, 20 MG PO DAILY Prescribed by: SHERIF PIERRE on 03/13/182032 Insulin Glargine,Hum.rec.anlog 100 Unit/1 Ml Vial, 5 UNIT SQ HS Prescribed by: BOB JC on 03/11/18 1020 Losartan/Hydrochlorothiazide 1 Each Tablet, 1 EACH PO DAILY, (Reported) Metoprolol Succinate 25 Mg Tab.er.24h, 25 MG PO DAILY, (Reported) Ranitidine HCl 150 Mg Tablet, 150 MG PO BID, (Reported) Simvastatin 20 Mg Tablet, 20 MG PO HS, (Reported) Patient Home Medication List Home Medication List Reviewed: Yes Review of Systems Review of Systems Constitutional: see HPI; No chills, No fever Cardiovascular: See HPI, Edema All Other Systems Reviewed Negative Unless Noted: Yes Past Ksjilev-Svggzo-Wicqcj Hx Past Med/Social Hx: Reviewed Nursing Past Med/Soc Hx Patient Social History Alcohol Use: Rarely Uses Number of Drinks Today: AA Alcohol Beverage of Choice: Beer Recreational Drug Use: No Smoking Status: Never a Smoker Former Smoker, Quit: Feb 20, 1984 Recent Foreign Travel: No Contact w/Someone Who Travel: No Recent Infectious Disease Expo: No Recent Hopitalizations: Yes ([facility]) Immunizations Up To Date Date of Pneumonia Vaccine: Feb 19, 2006 Seasonal Allergies Seasonal Allergies: No Past Medical History Surgeries: Yes ([facility] ECHAVAR[facility]) Abdominal, Coronary Stent, Oophorectomy Respiratory: No Cardiac: Yes ([facility]) Coronary Artery Disease, Hypertension, Peripheral Vascular Neurological: No Reproductive Disorders: No Genitourinary: No Gastrointestinal: Yes Gastroesophageal Reflux Musculoskeletal: No Endocrine: Yes Diabetes, Insulin dep HEENT: Yes Cataract Hearing Impairment: Hard of Hearing, Bilateral Hearing Aide Cancer: No Psychosocial: No Integumentary: No Blood Disorders: No Family Medical History Reviewed Nursing Family Hx No Pertinent Family Hx Physical Exam Vital Signs Vital Signs - First Documented 03/13/18 03/13/18 17:00 20:43 Temp 96.8 Pulse 57 Resp 22 B/P (MAP) 188/66 (106) Pulse Ox 97 O2 Delivery Room Air Capillary Refill : Less Than 3 Seconds Height, Weight, BMI Height: 5'9.00" Weight: 153lbs. 6.4oz. 69.378662om; 22.7 BMI Method:Stated General Appearance: No Apparent Distress, WD/WN Neck: Full Range of Motion, Normal Inspection, Non Tender Respiratory: Chest Non Tender, Lungs Clear, Normal Breath Sounds, No Accessory Muscle Use, No Respiratory Distress Cardiovascular: Regular Rate, Rhythm, No Gallop, No JVD, No Murmur, Normal Peripheral Pulses, Other (generalized pitting edema to the lower extremities bilaterally that extends up into his genitals and even up into his lower abdomen.) Gastrointestinal: Normal Bowel Sounds, No Organomegaly, No Pulsatile Mass, Non Tender, Soft Extremity: Normal Inspection, Normal Range of Motion, Non Tender, No Calf Tenderness, Pedal Edema Neurologic/Psychiatric: Alert, Oriented x3, Normal Mood/Affect Skin: Normal Color, Warm/Dry Progress/Results/Core Measures Results/Orders Lab Results Laboratory Tests Test 03/13/18 16:08 03/13/18 18:32 Range/Units White Blood Count 10.2 4.3-11.0 10^3/uL Red Blood Count 3.36 L 4.35-5.85 10^6/uL Hemoglobin 10.4 L 13.3-17.7 G/DL Hematocrit 31 L 40-54 % Mean Corpuscular Volume 94 80-99 FL Mean Corpuscular Hemoglobin 31 25-34 PG Mean Corpuscular Hemoglobin Concent 33 32-36 G/DL Red Cell Distribution Width 16.0 H 10.0-14.5 % Platelet Count 343 130-400 10^3/uL Mean Platelet Volume 10.4 7.4-10.4 FL Neutrophils (%) (Auto) 79 H 42-75 % Lymphocytes (%) (Auto) 10 L 12-44 % Monocytes (%) (Auto) 8 0-12 % Eosinophils (%) (Auto) 3 0-10 % Basophils (%) (Auto) 0 0-10 % Neutrophils # (Auto) 8.1 H 1.8-7.8 X 10^3 Lymphocytes # (Auto) 1.1 1.0-4.0 X 10^3 Monocytes # (Auto) 0.8 0.0-1.0 X 10^3 Eosinophils # (Auto) 0.3 0.0-0.3 10^3/uL Basophils # (Auto) 0.0 0.0-0.1 10^3/uL D-Dimer 4.28 H 0.00-0.49 UG/ML Sodium Level 137 135-145 MMOL/L Potassium Level 4.1 3.6-5.0 MMOL/L Chloride Level 105 98-107 MMOL/L Carbon Dioxide Level 21 21-32 MMOL/L Anion Gap 11 5-14 MMOL/L Blood Urea Nitrogen 21 H 7-18 MG/DL Creatinine 1.02 0.60-1.30 MG/DL Estimat Glomerular Filtration Rate > 60 BUN/Creatinine Ratio 21 Glucose Level 118 H 70-105 MG/DL Calcium Level 9.6 8.5-10.1 MG/DL Corrected Calcium 10.2 H 8.5-10.1 MG/DL Magnesium Level 1.9 1.8-2.4 MG/DL Total Bilirubin 0.7 0.1-1.0 MG/DL Aspartate Amino Transf (AST/SGOT) 64 H 5-34 U/L Alanine Aminotransferase (ALT/SGPT) 85 H 0-55 U/L Alkaline Phosphatase 76 40-136 U/L Troponin I < 0.30 <0.30 NG/ML B-Type Natriuretic Peptide 223.2 H <100.0 PG/ML Total Protein 7.3 6.4-8.2 GM/DL Albumin 3.3 3.2-4.5 GM/DL Urine Color YELLOW Urine Clarity CLEAR Urine pH 6 5-9 Urine Specific [place] 1.010 L 1.016-1.022 Urine Protein 1+ H NEGATIVE Urine Glucose (UA) NEGATIVE NEGATIVE Urine Ketones NEGATIVE NEGATIVE Urine Nitrite NEGATIVE NEGATIVE Urine Bilirubin NEGATIVE NEGATIVE Urine Urobilinogen NORMAL NORMAL MG/DL Urine Leukocyte Esterase NEGATIVE NEGATIVE Urine RBC (Auto) NEGATIVE NEGATIVE Urine RBC NONE /HPF Urine WBC 0-2 /HPF Urine Crystals NONE /LPF Urine Bacteria NEGATIVE /HPF Urine Casts NONE /LPF Urine Mucus NEGATIVE /LPF Urine Culture Indicated NO My Orders Orders - SHERIF PIERRE Cbc With Automated Diff (03/13/18 17:54) Magnesium (03/13/18 17:54) Chest 1 View, Ap/Pa Only (03/13/18 17:54) Cardiac Profile 1 (03/13/18 17:54) Comprehensive Metabolic Panel (03/13/18 17:54) Saline Lock/Iv-Start (03/13/18 17:54) BNP (03/13/18 17:54) Fibrin Degradation Products (03/13/18 17:56) Ua Culture If Indicated (03/13/18 18:31) Us Venous Lower Ext Jamie (03/13/18 18:42) Ct Angio Chest W (03/13/18 19:39) Iohexol Injection (Omnipaque 350 Mg/Ml 1 (03/13/18 20:15) Sodium Chloride Flush (Catheter Flush Sy (03/13/18 20:15) Pharmacy Communication (Pharmacy Communi (03/13/18 20:15) Furosemide Tablet (Lasix Tablet) (03/13/18 20:30) Furosemide Tablet (Lasix Tablet) (03/13/18 20:45) Medications Given in ED Current Medications Medications Dose Ordered Sig/Adolph Route Start Time Stop Time Status Last Admin Dose Admin Furosemide 40 mg ONCE ONCE PO 03/13/18 20:45 03/13/18 20:45 DC 03/13/18 20:39 40 MG Iohexol 150 ml ONCE ONCE IV 03/13/18 20:15 03/13/18 20:17 DC 03/13/18 20:17 150 ML Sodium Chloride 10 ml NEEDED PRN IV 03/13/18 20:15 03/13/18 20:43 DC 03/13/18 20:17 10 ML Vital Signs/I&O 03/13/18 03/13/18 17:00 20:43 Temp 96.8 97.0 Pulse 57 71 Resp 22 18 B/P (MAP) 188/66 (106) 184/69 (106) Pulse Ox 97 97 O2 Delivery Room Air Blood Pressure Mean: 106 Progress Progress Note : Time: 20:00 Progress Note I have discussed the patients case with Dr. Holt and she believes the patient can be managed on an outpatient basis. She recommends giving the patient lasix PO with a 40mg no and a 3 day of 20mg. The patient is in agreement with this plan. He has an appointment with Dr. Hayward next week for close follow up. Return precautions were givne. Diagnostic Imaging Diagonstic Imaging: Xray, CT, Ultrasound Plain Films/CT/US/NM/MRI: chest, leg Comments NAME: NICOLE TAYLOR [facility] REC#: [id number] PT STATUS: REG ER : 1930 PHYSICIAN: SHERIF PIERRE ADMIT DATE: 03/13/18/ER Signed Date of Exam: 03/13/18 CHEST 1 VIEW, AP/PA ONLY EXAM: CHEST 1 VIEW, AP/PA ONLY INDICATION: Left lower extremity swelling. COMPARISON: Chest radiograph 03/07/2018. FINDINGS: Cardiomegaly is accentuated by low lung volumes. Bibasilar atelectasis or infiltrate. No definite pleural effusion or pneumothorax. No acute osseous findings. IMPRESSION: Low lung volumes accentuates the cardiomegaly. Bibasilar atelectasis or infiltrate. Dictated by: Dictated on workstation # [id number] Dict: 03/13/181816 Trans: 03/13/181906 Interpreted by: LYNSEY NORIEGA MD Electronically signed by: LYNSEY NORIEGA MD 03/13/181906 NAME: NICOLE TAYLOR [facility] REC#: [id number] PT STATUS: DEP ER : 1930 PHYSICIAN: SHERIF PIERRE ADMIT DATE: 03/13/18/ER Signed Date of Exam: 03/13/18 US VENOUS LOWER EXT JAMIE PROCEDURE: US venous lower extremity, bilateral. TECHNIQUE: Multiple real-time grayscale images were obtained over the lower extremities in various projections, bilaterally. Additional duplex Doppler and color Doppler images were also obtained. INDICATION: Edema. FINDINGS: Bilateral lower extremity venous Doppler and ultrasound exam is normal. There is normal color flow, normal compressibility and normal pulsatility. No deep or superficial thrombi identified and there was no fluid collection demonstrated. IMPRESSION: Normal negative bilateral lower extremity venous Doppler and ultrasound exam. Dictated by: Dictated on workstation # [id number] Dict: 03/13/181939 Trans: 03/13/182218 Interpreted by: GRETCHEN HU Electronically signed by: GRETCHEN HU 03/13/182218 NAME: NICOLE TAYLOR [facility] REC#: [id number] PHYSICIAN: SHERIF PIERRE CC: SHERIF PIERRE; GRETCHEN HU Page 1 of 1 RADIOLOGY REPORT [place]IA [place] CC: SHERIF PIERRE; GRETCHEN HU Page 1 of 1 RADIOLOGY REPORT NAME: CLAUDIANICOLE Kyle [facility] REC#: [id number] PT STATUS: [facility] ER : 1930 PHYSICIAN: SHERIF PIERRE ADMIT DATE: 03/13/18/ER Signed Date of Exam: 03/13/18 CT ANGIO CHEST W PROCEDURE: CT angiography of the chest with contrast. TECHNIQUE: Multiple contiguous axial images were obtained through the chest after uneventful bolus administration of intravenous contrast. Reconstructed CTA MIP acquisitions were also performed. INDICATION: Swelling in the lower extremities. FINDINGS: There are no intraluminal pulmonary arterial filling defects. There are no findings of pulmonary arterial embolus. The aorta is patent and nonaneurysmal. There is left lower lobe infiltrate most suggestive of pneumonia. There is background chronic changes of COPD. There is a very small left pleural effusion, nonloculated. Upper abdomen reveals no acute pathology. IMPRESSION: Negative for PE. Small effusion with left lower lobe pneumonia. Nonacute aorta. Dictated by: Dictated on workstation # [id number] Dict: 03/13/182022 Trans: 03/13/182219 Interpreted by: GRETCHEN HU Electronically signed by: GRETCHEN HU 03/13/182219 Departure Impression Primary Impression: Anasarca Additional Impression: Pneumonia Disposition: HOME, SELF-CARE Condition: Stable/Unchanged Departure-Patient Inst. Decision time for Depature: 20:30 Referrals: NICOLE HAYWARD MD (PCP/Family) Primary Care Physician Patient Instructions: Community-Acquired Pneumonia in Adults, Swelling Add. Discharge Instructions: Take medication as directed. Continue your antibiotic that was prescribed for the pneumonia. Keep your appointment with Dr. Hayward as scheduled for Friday. Return back to the emergency room for any worsening symptoms or concerns as needed. All discharge instructions reviewed with patient and/or family. Voiced understanding. Scripts Furosemide (Lasix) 20 Mg Tablet 20 MG PO DAILY for 3 Days, #3 TAB Prov: SHERIF PIERRE 03/13/18 SHERIF PIERRE Mar 13, 2018 18:05
[2018-03-13 18:16] LABS: BASOPHILS % (AUTO) 0 % (0-10); EOSINOPHILS # (AUTO) 0.3 10^3/uL (0.0-0.3); EOSINOPHILS % (AUTO) 3 % (0-10); HEMATOCRIT 31 % (40-54); HEMOGLOBIN 10.4 G/DL (13.3-17.7); LYMPHOCYTES # (AUTO) 1.1 X 10^3 (1.0-4.0); LYMPHOCYTES % (AUTO) 10 % (12-44); MEAN CORPUSCULAR HEMOGLOBIN 31 PG (25-34); MEAN CORPUSCULAR HGB CONC 33 G/DL (32-36); MEAN CORPUSCULAR VOLUME 94 FL (80-99); MEAN PLATELET VOLUME 10.4 FL (7.4-10.4); MONOCYTES # (AUTO) 0.8 X 10^3 (0.0-1.0); MONOCYTES % (AUTO) 8 % (0-12); NEUTROPHILS # (AUTO) 8.1 X 10^3 (1.8-7.8); NEUTROPHILS % (AUTO) 79 % (42-75); PLATELET COUNT 343 10^3/uL (130-400); RED BLOOD COUNT 3.36 10^6/uL (4.35-5.85); WHITE BLOOD COUNT 10.2 10^3/uL (4.3-11.0)
--- NOTE | 2018-03-13 18:20 | Diagnostic Imaging Report ---
EXAM: CHEST 1 VIEW, AP/PA ONLY INDICATION: Left lower extremity swelling. COMPARISON: Chest radiograph 03/07/2018. FINDINGS: Cardiomegaly is accentuated by low lung volumes. Bibasilar atelectasis or infiltrate. No definite pleural effusion or pneumothorax. No acute osseous findings. IMPRESSION: Low lung volumes accentuates the cardiomegaly. Bibasilar atelectasis or infiltrate. Dictated by: Dictated on workstation # [id number]
[2018-03-13 18:28] LABS: ALANINE AMINOTRANSFERASE 85 U/L (0-55); ALBUMIN 3.3 GM/DL (3.2-4.5); ALKALINE PHOSPHATASE 76 U/L (40-136); BILIRUBIN,TOTAL 0.7 MG/DL (0.1-1.0); BUN/CREATININE RATIO 21; CALCIUM 9.6 MG/DL (8.5-10.1); CARBON DIOXIDE 21 MMOL/L (21-32); CHLORIDE 105 MMOL/L (98-107); CREATININE SERUM 1.02 MG/DL (0.60-1.30); GFR ESTIMATED > 60; GLUCOSE 118 MG/DL (70-105); MAGNESIUM 1.9 MG/DL (1.8-2.4); POTASSIUM 4.1 MMOL/L (3.6-5.0); SODIUM 137 MMOL/L (135-145); TOTAL PROTEIN 7.3 GM/DL (6.4-8.2)
[2018-03-13 18:39] LABS: BILIRUBIN,URINE NEGATIVE (NEGATIVE); CLARITY,URINE CLEAR; COLOR,URINE YELLOW; GLUCOSE, URINE (UA) NEGATIVE (NEGATIVE); KETONES,URINE NEGATIVE (NEGATIVE); LEUKOCYTE ESTERASE ,URINE NEGATIVE (NEGATIVE); NITRITE,URINE NEGATIVE (NEGATIVE); PH,URINE 6 (5-9); PROTEIN,URINE 1+ (NEGATIVE); UROBILINOGEN,URINE NORMAL (NORMAL)
[2018-03-13 18:54] LABS: BACTERIA,URINE NEGATIVE /HPF; WBC,URINE 0-2 /HPF
--- NOTE | 2018-03-13 20:04 | Diagnostic Imaging Report ---
PROCEDURE: US venous lower extremity, bilateral. TECHNIQUE: Multiple real-time grayscale images were obtained over the lower extremities in various projections, bilaterally. Additional duplex Doppler and color Doppler images were also obtained. INDICATION: Edema. FINDINGS: Bilateral lower extremity venous Doppler and ultrasound exam is normal. There is normal color flow, normal compressibility and normal pulsatility. No deep or superficial thrombi identified and there was no fluid collection demonstrated. IMPRESSION: Normal negative bilateral lower extremity venous Doppler and ultrasound exam. Dictated by: Dictated on workstation # [id number]
[2018-03-13] MEDS ORDERED: CATHETER FLUSH 10 ML SYR IV PRN (20:15)
[2018-03-13] MEDS ORDERED: IOHEXOL 350 MG/ML 150 ML (OMNIPAQUE 350) VIAL IV ONE (20:15)
--- NOTE | 2018-03-13 20:27 | Diagnostic Imaging Report ---
PROCEDURE: CT angiography of the chest with contrast. TECHNIQUE: Multiple contiguous axial images were obtained through the chest after uneventful bolus administration of intravenous contrast. Reconstructed CTA MIP acquisitions were also performed. INDICATION: Swelling in the lower extremities. FINDINGS: There are no intraluminal pulmonary arterial filling defects. There are no findings of pulmonary arterial embolus. The aorta is patent and nonaneurysmal. There is left lower lobe infiltrate most suggestive of pneumonia. There is background chronic changes of COPD. There is a very small left pleural effusion, nonloculated. Upper abdomen reveals no acute pathology. IMPRESSION: Negative for PE. Small effusion with left lower lobe pneumonia. Nonacute aorta. Dictated by: Dictated on workstation # [id number]
[2018-03-13] MEDS ORDERED: FUROSEMIDE 40 MG (LASIX) TAB PO ONE (20:30)
[2018-03-13] MEDS ORDERED: FURO-125 PO (20:33)
[2018-03-13 20:43] VITALS: BP 184/69
[2018-03-13] MEDS ORDERED: FUROSEMIDE 20 MG (LASIX) TAB PO ONE (20:45)
== END 2018-03-13 20:42 | disposition home or self-care (01) ==
LOC: EDUNIT# 16:08 → ER 16:09
DX: R60.1 Generalized edema (principal); J18.9 Pneumonia, unspecified organism; I25.10 Atherosclerotic heart disease of native coronary artery without angina pectoris; I10 Essential (primary) hypertension; I73.9 Peripheral vascular disease, unspecified; K21.9 Gastro-esophageal reflux disease without esophagitis; E11.9 Type 2 diabetes mellitus without complications; Z79.82 Long term (current) use of aspirin; Z79.02 Long term (current) use of antithrombotics/antiplatelets; Z79.4 Long term (current) use of insulin; Z87.891 Personal history of nicotine dependence; Z95.5 Presence of coronary angioplasty implant and graft
CPT/HCPCS: 36415; 71045; 71275; 80053; 81000; 83735; 83880; 84484; 85025; 85379; 93970

== ENCOUNTER → 2018-04-01 | Outpatient (CLI) | payer MEDICARE, OTHER ==
[~2018-04-01] MED LIST changes: +FURO-125 PO
--- NOTE | 2018-04-01 10:20 | Diagnostic Imaging Report ---
INDICATION: Shortness of breath and pneumonia. Time of exam: 10:22 AM Correlation is made with prior chest from 03/13/2018. The heart size is normal. There continues to be some mild patchy infiltrate in the left base suggestive of pneumonia. Right lung is clear. The pulmonary vascularity is normal. No effusion or pneumothorax is seen. IMPRESSION: Continued left basilar infiltrate suggestive of pneumonia, similar to examination from 03/13/2018. Dictated by: Dictated on workstation # [id number]
== END ==
LOC: RAD 09:49
PROVIDERS: ATTEND Internal Medicine
DX: J18.9 Pneumonia, unspecified organism (principal)
CPT/HCPCS: 71046

== ENCOUNTER → 2018-04-17 | Outpatient (CLI) | payer MEDICARE, OTHER ==
[~2018-04-17] MED LIST changes: +IOHEXOL 350 MG/ML 100 ML (OMNIPAQUE 350) VIAL IV ONE; +NS 250 ML (IVPB) BAG IV ONE
--- NOTE | 2018-04-17 13:34 | Diagnostic Imaging Report ---
PROCEDURE: CT chest with contrast only. TECHNIQUE: Multiple contiguous axial images were obtained through the chest after administration of intravenous contrast. INDICATION: Bilateral pneumonia. Correlation is made with prior CT chest from 03/13/2018. No axillary lymphadenopathy is identified. A subcarinal soft tissue fullness has improved since prior CT, now measuring 2.0 x 1.3 cm compared with 2.0 x 1.7 cm. No hilar lymphadenopathy is identified. No pericardial fluid is seen. Previously noted small bilateral effusions have resolved. There are centrilobular emphysematous changes in both lungs. Tiny nodule right upper lobe is seen, image 31 stable. Previously noted left lower lobe pneumonia has largely resolved. There is mild residual interstitial changes in the left lower lobe. No parenchymal mass is seen. The upper abdomen is unremarkable. IMPRESSION: Near-complete resolution of previously noted left lower lobe pneumonia and bilateral pleural effusions when compared with prior CT chest from 03/13/2018. Dictated by: Dictated on workstation # [id number]
== END ==
LOC: RAD 12:31
PROVIDERS: ATTEND Internal Medicine
DX: J18.9 Pneumonia, unspecified organism (principal); J90 Pleural effusion, not elsewhere classified
CPT/HCPCS: 71260

== ENCOUNTER → 2018-07-07 | Outpatient (CLI) | payer MEDICARE, OTHER ==
[~2018-07-07] MED LIST changes: +NS 100 ML (IVPB) BAG IV ONE; -NS 250 ML (IVPB) BAG IV ONE; +RECEIVED CONTRAST (Hold Metformin) IV SCH
--- NOTE | 2018-07-07 15:19 | Diagnostic Imaging Report ---
PROCEDURE: CT angiography of the head with and without contrast. TECHNIQUE: Noncontrast CT of the head was obtained. Subsequently, after intravenous administration of contrast, thin section axial CT angiography of the head was performed. Source data was reformatted into multiple MIP reformats. Delayed postcontrast acquisition of the head was also acquired. INDICATION: Vertigo. FINDINGS: Precontrast portion of the study does show ventricles and sulci to be appropriate for the patient's age. There is mild periventricular hypodensity noted consistent with senescent change. No sulcal effacement or midline shift is seen. No acute intra-axial or extra-axial hemorrhage is detected. The delayed postcontrast images are without abnormal enhancement. CT angiographic portion of the study demonstrates the distal internal carotid arteries and cavernous internal carotid arteries to be widely patent. The middle cerebral and anterior cervical arteries are widely patent. No stenosis or aneurysm is seen. Bilateral posterior cerebral arteries are patent. The basilar is widely patent. The visualized distal vertebrals are patent. Left vertebral is dominant. No stenosis is detected. No definite thromboemboli are seen. IMPRESSION: Unremarkable CT angiogram of the head. Dictated by: Dictated on workstation # [id number]
== END ==
LOC: RAD 14:10
PROVIDERS: ATTEND Physician Assistant
DX: R42 Dizziness and giddiness (principal)
CPT/HCPCS: 70496